=== PATIENT | female | born 1935 | race Caucasian/White ===

== ENCOUNTER 2017-08-28 04:27 | Observation (INO) ==
[2017-08-28] MEDS ORDERED: *HR* OxyCODONE Immed Rel 5 MG TABLET PO ONE (04:36)
--- NOTE | 2017-08-28 06:14 | Emergency Department Note ---
Disposition Clinical Impression: Muscle contusion, Inability to ambulate due to hip Disposition: Admitted As Inpatient Condition: Good General Adult HPI - General Chief complaint: ED Back Pain/Injury Stated complaint: back pain Time Seen by Provider: 08/28/17 04:34 Source: patient, EMS Limitations: no limitations Nursing Notes Reviewed: Yes Vital Signs Reviewed: Yes - History of Present Illness HPI Narrative: Patient presents for evaluation of left leg pain. Patient states that she fell approximately 10 days ago. She has pain when she initially tries to stand up. Patient states the symptoms improve as she walks. Pain is localized to the left hip area. Patient does not complain of any back pain. No numbness or tingling through the lower extremity. Pain occasionally radiates to the knee. Will perform CT scan to further evaluate for possible fracture. Pain is likely musculoskeletal as she has significant tender point within the gluteus and pain with passive stretching of the musculature. Pain Scale: 8 - Related Data Previous Rx's Medication Instructions Recorded Azithromycin [Azithromycin 6-Tab 250 mg PO PER PKG DI #6 tab 02/14/17 Pack] predniSONE [PredniSONE] 10 mg PO DAILY #20 tablet 02/14/17 Lidocaine Patch [Lidoderm 5% patch] 1 each TP DAILY #7 adh..patch 08/18/17 Naproxen [Naprosyn] 250 mg PO BID #14 tablet 08/28/17 Allergies Allergy/AdvReac Type Severity Reaction Status Date / Time Penicillins Allergy Itching Verified 02/14/17 12:18 prednisone AdvReac Nausea Verified 02/14/17 12:18 All systems ED: reviewed and negative except as stated. Constitutional: Denies: fever, chills Cardiovascular: Denies: chest pain, palpitations Respiratory: Denies: cough Gastrointestinal: Denies: abdominal pain, nausea, vomiting Musculoskeletal: Reports: other (Left leg pain). Denies: back pain Integumentary: Denies: rash, abrasion, lesions Neurological: Denies: headache Past Medical History - Past Medical History Medical history: Reports: asthma Psychiatric history: Reports: no psych history - Social History Smoking Status: Never smoker Smokeless Tobacco Status: No Alcohol use: Reports: none Drug use: Reports: none Physical Exam General appearance: NAD, conversant Eyes: anicteric sclerae, moist conjunctivae; PERRL HENT: Atraumatic; oropharynx clear with moist mucous membranes Neck: Normal appearance; Trachea midline Chest: Symmetrical chest rise; No respiratory distress Extremities: No peripheral edema or extremity tenderness Musculoskeletal: Tenderness to palpation most significant within the middle aspect of the gluteus muscle. Patient has pain with straight leg raise and stretching of the hamstring. Patient has gotten up to go to the bathroom and walks without difficulty. Neurovascularly intact to the lower extremity. No tenderness to palpation along the lumbar spine or sacroiliac crests. Mild tenderness to the left hip. Skin: Normal temperature, turgor and texture; no rash, ulcers or subcutaneous nodules Psych: Appropriate mood and affect Neuro: Awake and alert - General Limitations: no limitations General appearance: alert, in no apparent distress Course - Reevaluation(s) Reevaluation #1: CT negative. Patient was attempted to a related bedside and has significant difficulty getting up as well as getting down. Patient is unable to go home secondary to her not have any assistance at home. He has zero mobility without assistance. - Consultations Consultation #1: Discussed with Dr. Rodriguez. Pt accepted for admission. Vital Signs Temperature 99.3 F 08/28/17 04:29 Pulse Rate 70 08/28/17 04:29 Respiratory Rate 16 08/28/17 04:29 Blood Pressure 189/99 08/28/17 04:29 O2 Sat by Pulse Oximetry 99 08/28/17 04:29 Temperature 97.5 F L 08/28/17 07:31 Pulse Rate 64 08/28/17 07:31 Respiratory Rate 16 08/28/17 07:31 Blood Pressure 168/83 08/28/17 07:31 O2 Sat by Pulse Oximetry 97 08/28/17 07:31 Oxygen Delivery Oxygen Delivery Room Air Medical Decision Making - Lab Data Result diagrams: 08/28/17 06:48 08/28/17 06:48 Lab Results 08/28/17 08/28/17 08/28/17 Range/Units 06:48 06:48 06:48 WBC 7.0 (4.3-11.1) K/mcL RBC 5.03 H (3.82-4.97) M/mcL Hgb 14.5 (11.5-15.4) g/dL Hct 44.4 (35.3-44.9) % MCV 88.3 (83.0-100.0) fL MCH 28.8 (28.0-33.3) pg MCHC 32.7 (31.6-35.5) g/dL RDW 13.2 (11.5-14.5) % Plt Count 286 (140-400) K/mcL MPV 9.7 (9.4-12.4) fL Immature Gran % 0.4 (0-4) % Seg Neutrophils % 60.0 % Lymphocytes % 27.3 % Monocytes % 9.0 % Eosinophils % 2.6 % Basophils % 0.7 % Neutrophils # 4.2 (1.6-8.9) K/mcL Lymphocytes # 1.9 (0.6-4.6) K/mcL Monocytes # 0.6 (0.0-1.3) K/mcL Eosinophils # 0.2 (0.0-0.6) K/mcL Basophils # 0.1 (0.0-0.2) K/mcL PT 11.9 (9.4-12.1) Seconds INR 1.1 Sodium 139 (136-145) mEq/L Potassium 3.7 (3.5-4.5) mEq/L Chloride 105 (98-109) mEq/L Carbon Dioxide 26 (19-29) mEq/L BUN 19 (7-20) mg/dL Creatinine 0.77 (0.57-1.11) mg/dL Est GFR ( Amer) > 60 (> 60) Est GFR (Non-Af Amer) > 60 (> 60) BUN/Creatinine Ratio 25 (6-26) Glucose 102 H (70-99) mg/dL Calculated Osmolality 290 (280-300) Calcium 9.4 (8.6-10.8) mg/dL Total Bilirubin 0.6 (0.2-1.2) mg/dL AST 21 (5-34) Units/L ALT 20 (0-55) Units/L Alkaline Phosphatase 81 (38-126) Units/L Serum Total Protein 8.3 (6.0-8.3) g/dL Albumin 3.9 (3.5-5.0) g/dL Globulin 4.4 H (2.4-3.5) g/dL Albumin/Globulin Ratio 0.9 L (1.1-2.2) Attestation Statement - Attestation Attestation: IVikash MD, personally evaluated this patient and discussed their management with the resident physician. I reviewed the resident's note and agree with the documented findings, medical decision making, and plan of care. 82-year-old female presents to the emergency department with a complaint of left lower back pain going down the left leg. Patient had a fall approximately 10 days ago. She was seen here at that time and had some x-rays which were negative. She complains of continued pain which has gotten worse over the past few days. Pain is in the left lower lumbar and left sacroiliac region and radiates down through the left buttock and down the left leg. No numbness tingling or weakness in the leg. No urinary incontinence or urinary retention. No difficulty with bowel movements. Abdominal pain. No fever. Patient complains of difficulty ambulating and getting around due to the pain. On examination patient is a well-developed well-nourished elderly female in no acute distress. She is alert and oriented 3. There is no cyanosis or diaphoresis. Breath sounds are clear and equal bilaterally. Heart regular rate and rhythm. Abdomen soft and nontender with normal bowel sounds. There is tenderness over the left SI joint region and patient has a positive straight leg raise on the left. CT of the pelvis was obtained and showed no definite fracture. We attempted to road test patient but she was unable to ambulate with the use of a walker. The hospitalist, Dr. Rodriguez, was consulted and accepted admission of the patient.
[2017-08-28 06:57] LABS: Basophils # 0.1 K/mcL (0.0-0.2); Basophils % 0.7 %; Eosinophils # 0.2 K/mcL (0.0-0.6); Eosinophils % 2.6 %; Hematocrit 44.4 % (35.3-44.9); Hemoglobin 14.5 g/dL (11.5-15.4); Immature Granulocytes % 0.4 % (0-4); Lymphocytes # 1.9 K/mcL (0.6-4.6); Lymphocytes % 27.3 %; Mean Corpuscular HGB Conc 32.7 g/dL (31.6-35.5); Mean Corpuscular Hemoglobin 28.8 pg (28.0-33.3); Mean Corpuscular Volume 88.3 fL (83.0-100.0); Mean Platelet Volume 9.7 fL (9.4-12.4); Monocytes # 0.6 K/mcL (0.0-1.3); Neutrophils # 4.2 K/mcL (1.6-8.9); Platelet Count 286 K/mcL (140-400); Red Blood Count 5.03 M/mcL (3.82-4.97); Red Cell Distribution Width 13.2 % (11.5-14.5)
[2017-08-28 07:03] LABS: INR 1.1; Prothrombin Time 11.9 Seconds (9.4-12.1)
[2017-08-28 07:05] LABS: Alanine Aminotransferase 20 Units/L (0-55); Albumin 3.9 g/dL (3.5-5.0); Albumin/Globulin Ratio 0.9 (1.1-2.2); Alkaline Phosphatase 81 Units/L (38-126); Aspartate Amino Transferase 21 Units/L (5-34); BUN/Creatinine Ratio 25 (6-26); Bilirubin,Total 0.6 mg/dL (0.2-1.2); Blood Urea Nitrogen 19 mg/dL (7-20); Calcium 9.4 mg/dL (8.6-10.8); Carbon Dioxide 26 mEq/L (19-29); Chloride 105 mEq/L (98-109); Globulin 4.4 g/dL (2.4-3.5); Glucose 102 mg/dL (70-99); Osmolality,Calculated 290 (280-300); Potassium 3.7 mEq/L (3.5-4.5); Sodium 139 mEq/L (136-145); Total Protein 8.3 g/dL (6.0-8.3); eGFR For African Americans > 60 (> 60); eGFR For Non-African Americans > 60 (> 60)
[2017-08-28 08:08] LABS: Bilirubin,Urine Negative (Negative); Blood,Urine Negative (Negative); Clarity,Urine Cloudy (Clear); Color,Urine Yellow (Yellow); Glucose,Urine (UA) Normal (Normal); Ketones,Urine Negative (Negative); Leukocyte Esterase,Urine Moderate (Negative); Nitrite,Urine Positive (Negative); PH,Urine 7.5 pH Units (5.0-8.0); Protein,Urine Negative (Neg-Trace); Specific Gravity,Urine 1.014 (1.010-1.025); Urobilinogen,Urine Normal (Normal)
[2017-08-28 08:10] LABS: Bacteria,Urine Many per hpf (None-Few); Hyaline Casts,Urine None Seen per lpf (None-Few); RBC,Urine 0-3 per hpf (0-3); Squamous Epithelial Cell,Urine None Seen per lpf (None-Few); WBC,Urine 50-100 per hpf (0-3)
--- NOTE | 2017-08-28 09:39 | Internal Med History&Physical ---
Date of Encounter: 08/28/17 Time of Encounter: 08:00 Assessment and Plan (1) Inability to ambulate due to hip Current visit: Yes Status: Acute -Patient reports a 2 week history of difficulty with ambulation status post fall and pain from left hip down to her left foot. -Patient with positive straight leg test with pain radiating down from her left gluteus down to her foot. -In the ER, CT of the pelvis showed severe lumbar spondylosis with no definite fracture but recommendations for MRI for evaluation for lumbar vertebral fractures. -Will order MRI of pelvis to rule out fracture of hip and MRI of lumbar to rule out fracture of lumbar spine. -Will also consult physical therapy for evaluation of home safety. (2) Asthma Current visit: Yes Status: Acute -Stable; continue home medications. Qualifiers: Asthma complication type: unspecified Qualified Code(s): J45.909 - Unspecified asthma, uncomplicated (3) Glaucoma Current visit: Yes Status: Acute -Continue home medications. Qualifiers: Glaucoma stage: stage unspecified Qualified Code(s): H40.10X0 - Unspecified open-angle glaucoma, stage unspecified (4) Pyuria Current visit: Yes Status: Acute -Patient with positive nitrites, leukoesterase and white blood cells on urinalysis. -Patient is asymptomatic however therefore will not initiate treatment until results of cultures are known which are pending. (5) DVT prophylaxis Current visit: Yes Status: Acute -Subcutaneous heparin Internal Medicine - H&P: HPI Chief complaint: Left gluteal/leg pain Admitted From: Home Plans for Post Hospital Care: Transfer Nursing Home Facility History of present illness: Patient is an 82-year-old female with past medical history significant for glaucoma and asthma who presents to the ER on 08/28/17 due to left gluteal and left leg pain. Patient reports of falling on her left side approximately 2 weeks ago and presented then to [facility] ER and was discharged with Lidoderm patch. Patient however reports no improvement in her left leg pain. Patient describes her pain as sharp with a severity of 10 out of 10 and states that it starts at her left gluteus and radiates down the lateral aspect of her leg down to her foot. Patient reports the pain is provoked on standing and lasts for minutes and then resolves. Patient denies any numbness or tingling in leg. She now reports of having difficulty ambulating which has affected her independence at home so she decided to come into the ER for another evaluation. In the ER, CT of the pelvis showed severe lumbar spondylosis with no definite fracture but recommendations for MRI for evaluation for lumbar vertebral fractures. She was also found to have pyuria on urinalysis but is asymptomatic ; cultures pending. Patient will be admitted to the medical surgical floor for left gluteal/leg pain. Past Med Surg Social Fam HX - Past Medical History Medical history: asthma Psychiatric history: no psych history - Social History Smoking Status: Never smoker Smokeless Tobacco Status: No Alcohol use: none Drug use: none Internal Medicine - H&P: Meds Lidocaine Patch [Lidoderm 5% patch] 1 each TP DAILY #7 adh..patch 08/18/17 [Rx] Latanoprost [Xalatan] 1 drop OP HS 08/28/17 [History] Naproxen [Naprosyn] 250 mg PO BID #14 tablet 08/28/17 [Rx] 3 Allergy/AdvReac Type Severity Reaction Status Date / Time Penicillins Allergy Itching Verified 02/14/17 12:18 prednisone AdvReac Nausea Verified 02/14/17 12:18 All Systems PM: A 10-system review of systems was performed and is negative for pertinent findings except as documented above in the HPI. - Constitutional Vitals: Temp Pulse Resp BP Pulse Ox 97.5 F L 64 16 168/83 97 08/28/17 07:31 08/28/17 07:31 08/28/17 07:31 08/28/17 07:31 08/28/17 07:31 General appearance: Present: A&O X 3, no acute distress - Head Head exam: Present: atraumatic - Eye Eye exam: Present: normal appearance - ENT ENT exam: Present: mucous membranes moist - Respiratory Respiratory exam: Present: CTAB. Absent: accessory muscle use, rales, rhonchi, wheezes - Cardiovascular Cardiovascular exam: Present: RRR, +S1, +S2. Absent: diastolic murmur, gallop, rubs, systolic murmur - GI/Abdominal GI/Abdominal exam: Present: normal bowel sounds, soft, no peritoneal signs. Absent: distended, tenderness - Back Exam Back exam: Absent: vertebral tenderness (Radiating shooting pain with left leg raise) - Neurological Exam Neurological exam: Present: oriented X3, no focal deficits - Psychiatric Psychiatric exam: Present: normal mood - Skin Skin exam: Present: normal color Internal Med - H&P Results - Labs CBC & Chem 7: 08/28/17 06:48 08/28/17 06:48 Labs: Urine 08/28/17 Range/Units 07:57 Urine Color Yellow (Yellow) Urine Clarity Cloudy A (Clear) Urine pH 7.5 (5.0-8.0) pH Units Ur Specific [place] 1.014 (1.010-1.025) Urine Protein Negative (Neg-Trace) mg/dL Urine Glucose (UA) Normal (Normal) mg/dL
[2017-08-28] MEDS ORDERED: Ketorolac 30 MG/ML VIAL IVP PRN (10:11)
[2017-08-28] MEDS ORDERED: Naloxone 0.4 MG/ML INJ IVP PRN (10:11)
[2017-08-28] MEDS: *HR* Heparin 5,000 UNIT/ML VIAL SQ SCH ×2 (16:59→21:00)
[2017-08-28] MEDS ORDERED: Acetaminophen 325 MG TABLET PO PRN (20:36)
[2017-08-28] MEDS: Latanoprost 2.5 ML BOTTLE BOTH EYES SCH (21:00)
[2017-08-29] MEDS: *HR* Heparin 5,000 UNIT/ML VIAL SQ SCH ×3 (05:27→21:03)
[2017-08-29 06:05] LABS: Basophils % 0.4 %; Eosinophils # 0.2 K/mcL (0.0-0.6); Hematocrit 43.7 % (35.3-44.9); Hemoglobin 14.4 g/dL (11.5-15.4); Immature Granulocytes % 0.3 % (0-4); Lymphocytes # 2.1 K/mcL (0.6-4.6); Lymphocytes % 22.7 %; Mean Corpuscular Hemoglobin 28.8 pg (28.0-33.3); Mean Corpuscular Volume 87.4 fL (83.0-100.0); Mean Platelet Volume 9.9 fL (9.4-12.4); Monocytes # 0.8 K/mcL (0.0-1.3); Monocytes % 8.6 %; Platelet Count 292 K/mcL (140-400); Red Cell Distribution Width 13.2 % (11.5-14.5)
[2017-08-29 06:15] LABS: BUN/Creatinine Ratio 26 (6-26); Blood Urea Nitrogen 23 mg/dL (7-20); Calcium 9.4 mg/dL (8.6-10.8); Carbon Dioxide 24 mEq/L (19-29); Chloride 104 mEq/L (98-109); Glucose 103 mg/dL (70-99); Osmolality,Calculated 292 (280-300); Potassium 3.8 mEq/L (3.5-4.5); Sodium 139 mEq/L (136-145); eGFR For African Americans > 60 (> 60); eGFR For Non-African Americans > 60 (> 60)
--- NOTE | 2017-08-29 15:13 | Electrocardiograph Report ---
[address] [address] Test Date: 2017-08-28 Pat Name: Alexa Christian Department: [id number] Room: 3B24 Gender: F Firm Administrator: EKP : [id number] Requested By: Von Reese Order Number: [id number] Reading MD: Toni Munguia Measurements Intervals [place] Rate: 60 P: 56 NH: 176 QRS: -22 QRSD: 106 T: 83 QT: 448 QTc: 450 Interpretive Statements SINUS RHYTHM WITH MARKED SINUS ARRHYTHMIA BORDERLINE LEFT AXIS DEVIATION VOLTAGE CRITERIA FOR LVH NONSPECIFIC T-WAVE ABNORMALITY Electronically Signed On 08-29-2017 15:12:08 EST by Toni Munguia
[2017-08-29] MEDS: Latanoprost 2.5 ML BOTTLE BOTH EYES SCH (20:26)
--- NOTE | 2017-08-30 01:56 | Internal Med Progress Note ---
Date of Encounter: 08/29/17 Time of Encounter: 12:35 - Assessment and plan (1) Inability to ambulate due to hip Current Visit: Yes Status: Acute Assessment and plan: Follow-up MRI read, PT/OT evaluation. (2) Muscle contusion Current Visit: Yes Status: Acute (3) Asthma Current Visit: Yes Status: Acute Qualifiers: Asthma complication type: unspecified Qualified Code(s): J45.909 - Unspecified asthma, uncomplicated (4) DVT prophylaxis Current Visit: Yes Status: Acute - Subjective Interval history: No acute events. Had MRI done results pending. Pain is minimal when she is laying on her back. She is able to sit up on her own and has no complaints. - Constitutional Vitals: Temp Pulse Resp BP Pulse Ox 98.0 F 73 16 179/97 95 08/29/17 23:15 08/29/17 23:15 08/29/17 23:15 08/29/17 23:15 08/29/17 23:15 General appearance: Present: A&O X 3, no acute distress Exam: - Head Head exam: Present: atraumatic - Eye Eye exam: Present: normal appearance - ENT ENT exam: Present: mucous membranes moist - Respiratory Respiratory exam: Present: CTAB. Absent: accessory muscle use, rales, rhonchi, wheezes - Cardiovascular Cardiovascular exam: Present: RRR, +S1, +S2. Absent: diastolic murmur, gallop, rubs, systolic murmur - GI/Abdominal GI/Abdominal exam: Present: normal bowel sounds, soft, no peritoneal signs. Absent: distended, tenderness - Back Exam Back exam: Absent: vertebral tenderness (Radiating shooting pain with left leg raise) - Neurological Exam Neurological exam: Present: oriented X3, no focal deficits - Psychiatric Psychiatric exam: Present: normal mood - Skin Skin exam: Present: normal color Internal Medicine: Result - Labs CBC & Chem 7: 08/29/17 05:33 08/29/17 05:33 Labs: Short CBC 08/29/17 Range/Units 05:33 WBC 9.1 (4.3-11.1) K/mcL Hgb 14.4 (11.5-15.4) g/dL Hct 43.7 (35.3-44.9) % Plt Count 292 (140-400) K/mcL Neutrophils # 6.0 (1.6-8.9) K/mcL BMP 08/29/17 05:33 Sodium 139 Potassium 3.8 Chloride 104 Carbon Dioxide 24 BUN 23 H Creatinine 0.89 Glucose 103 H Calcium 9.4 - ABG Interpretation ABG results: PT/INR, D-dimer PT 11.9 Seconds (9.4-12.1) 08/28/17 06:48 - Impressions Impressions Hip MRI 08/29/17 08:55 IMPRESSION: No evidence for occult fracture. Mild degenerative changes to the left hip along with degeneration/tearing of the superolateral and anterosuperior labrum. High-grade partial-thickness tearing along with tendinosis involving the left gluteus medius tendon at greater trochanteric attachment. Suspected full-thickness component to the tear as well. There is also tendinosis and high-grade partial tearing of the left hamstring tendons at ischial tuberosity attachment. Mild left greater trochanteric bursitis. On large [id number] coronal sequences there is also evidence for high-grade partial tearing and tendinosis to the right common hamstring tendons at right ischial tuberosity attachment as well as for minimal right greater trochanteric bursitis. D/ / 08/29/2017 12:12:57 Brandon Samuel MD / mara Interpreting Provider: Brandon Samuel MD Lumbar Spine MRI 08/29/17 08:55 IMPRESSION: Levoscoliosis. Grade 1 spondylolisthesis of L4 on L5. Retrolisthesis of T12 on L1, L1 on L2, and L2 on L3. Multilevel degenerative changes with disc and osteophytes resulting in narrowing of the neural foramina throughout the lumbar region. There is stenosis of the thecal sac at L4-L5 as discussed above. D/ / 08/29/2017 12:07:11 Veronica Simeon MD / mara Interpreting Provider: Veronica Simeon MD Consult Discharge Plan - Plan Referrals: Esthela Simeon MD [Primary Care Provider] - 09/05/17 2:50 pm
[2017-08-30] MEDS: *HR* Heparin 5,000 UNIT/ML VIAL SQ SCH ×3 (06:02→21:20)
[2017-08-30] MEDS ORDERED: Levofloxacin 500 MG/100 ML 500 MG/100 ML BAG IVPB SCH (09:00)
--- NOTE | 2017-08-30 14:29 | Internal Med Progress Note ---
Date of Encounter: 08/30/17 Time of Encounter: 14:25 - Assessment and plan (1) Tendonosis Current Visit: Yes Status: Acute Assessment and plan: presented with 2 week history of difficulty ambulating status post fall and pain from left hip down to her left foot. Hip MRI with high-grade partial- thickness tearing along with tendinosis involving the left gluteus medius tendon , high-grade partial tearing and tendinosis to the right common hamstring tendons. Lumbar MRI with narrowing of the neural foramina throughout the lumbar region. Sx's improved with conservative treatment. Ortho consulted (2) UTI due to Klebsiella species Current Visit: Yes Status: Acute Assessment and plan: Urine cx with klebsiella, saxena sensitive. Cont Levaquin (3) Hypertension Current Visit: Yes Status: Acute Assessment and plan: BP elevated, not on BP medications at home. Start low dose amlodipine Qualifiers: Hypertension type: essential hypertension Qualified Code(s): I10 - Essential (primary) hypertension (4) DVT prophylaxis Current Visit: Yes Status: Acute Assessment and plan: heparin - Subjective Interval history: Seen and examined at bedside; patient is new to me. Information obtained from chart review and patient report. Patient says she feels much better, she actually denies bacl or leg pain. Says she is able to get around as long as she careful and moves slowly. No numbness or tingling, no CP, no SOB - Constitutional Vitals: Temp Pulse Resp BP Pulse Ox 98.0 F 65 18 146/78 97 08/30/17 11:02 08/30/17 11:02 08/30/17 11:02 08/30/17 11:02 08/30/17 11:02 General appearance: Present: A&O X 3, no acute distress - Head Head exam: Present: atraumatic, normocephalic - Eye Eye exam: Present: PERRL, conjuntiva pink, sclera anicteric Pupils: Present: PERRL - Neck Neck exam general surgery: Present: supple, trachea midline. Absent: lymphadenopathy - Respiratory Respiratory exam: Present: CTAB. Absent: accessory muscle use, rales, rhonchi, wheezes - Cardiovascular Cardiovascular exam: Present: RRR, +S1, +S2. Absent: diastolic murmur, gallop, rubs, systolic murmur - GI/Abdominal GI/Abdominal exam: Present: normal bowel sounds, soft, no peritoneal signs. Absent: distended, tenderness - Extremities Exam Extremities exam: Present: warm, radial pulses palpable and symmetrical. Absent : calf tenderness, cyanotic, pedal edema - Neurological Exam Neurological exam: Present: CN II-XII intact, oriented X3, no focal deficits. Absent: pronater drift, facial droop, speech deficit - Skin Skin exam: Present: dry, intact Internal Medicine: Result - Labs CBC & Chem 7: 08/29/17 05:33 08/29/17 05:33 - ABG Interpretation ABG results: PT/INR, D-dimer PT 11.9 Seconds (9.4-12.1) 08/28/17 06:48 - Impressions Impressions Lumbar Spine MRI 08/29/17 08:55 IMPRESSION: Levoscoliosis. Grade 1 spondylolisthesis of L4 on L5. Retrolisthesis of T12 on L1, L1 on L2, and L2 on L3. Multilevel degenerative changes with disc and osteophytes resulting in narrowing of the neural foramina throughout the lumbar region. There is stenosis of the thecal sac at L4-L5 as discussed above. D/ / 08/29/2017 12:07:11 Veronica Simeon MD / mara Interpreting Provider: Veronica Simeon MD Consult Discharge Plan - Plan Referrals: Esthela Simeon MD [Primary Care Provider] - 09/05/17 2:50 pm
[2017-08-30] MEDS ORDERED: amLODIPine 5 MG TABLET PO SCH (14:45)
--- NOTE | 2017-08-30 18:55 | Orthopedic Consult Note ---
Date of Encounter: 08/30/17 Time of Encounter: 18:41 History of Present Illness Chief complaint: Improving buttock, back and leg pain HPI: Ms. Christian is a 82 year old female who sustained a fall approximately 2 weeks ago while outside of her home onto some concrete. She states that she scraped her knee at the time. She states that she really was not feeling too bad initially but after a few days time she started developing progressive pain in and about the buttock and legs. This is predominantly on the left side. Patient got to the point where her pain was progressive. She was seen initially on August 17 and had x-rays of her elbow knee and pelvis. No fractures were identified. The patient was then seen on [address] of the pelvis, MRI the left hip and MRI of the lumbar spine were performed with positive findings noted. Patient states that she is feeling quite well now. She is not having any pain routinely. She is able to ambulate. Most of the pain is is in transitioning from a sit to stand or a supine to standing position. She was having buttock and posterior leg pain. Denies neurovascular complaints. I reviewed the history and physical exam as well as pertinent history with the patient. Please see completed portion of the medical record for that information. Examination at this time reveals a scab over the anterolateral aspect of the left knee. The knee exam is relatively benign. There is no evidence of bilateral sciatic tension nor popliteal compression signs. Patient does have some mild tenderness over the left greater trochanter. There is no evidence of hip pain with range of motion. Distal neurosensory exam is grossly intact. Reviewed multiple studies. From 08/17/2017 I reviewed her left elbow x-ray is unremarkable. Left knee x-rays reviewed and this does show medial osteoarthritic changes with some lateral chondrocalcinosis. pelvis x-ray revealed some mild bilateral hip arthritic changes, there is the presence of vascular calcifications on the left side as well as rather arthritic changes at the left sacroiliac joint and fairly advanced lumbosacral degenerative disc and degenerative joint disease. I reviewed a CT of the pelvis from 08/28/2017, this revealed changes along both greater trochanters, some left acetabular cysts, left sacral iliac joint arthritic changes and fairly advanced lumbosacral degenerative joint and degenerative disc disease with a grade 4 L4-5 spondylolisthesis. An MRI of the left hip performed at same day reveals quite significant findings. There is no evidence of an acute fracture. The left hip shows some mild arthritic changes without evidence of an effusion. The labrum shows degenerative tearing. There is evidence of bilateral trochanteric bursitis left more involved than the right. The left gluteus medius muscle was markedly atrophic with what is probably a full- thickness tendon tear or avulsion off the trochanter. There is also atrophic muscle change in both the tensor fascia arabella and the gluteus minimus muscle. Incidental findings of partial tearing or tendinitis of the right hamstring at the ischial tuberosity is also noted. An MRI of the lumbosacral spine was performed on 08/29/2017. This is reviewed. This does show multilevel degenerative joint and degenerative disc disease. There is what is probably a degenerative grade 1 spondylolisthesis of L4 on 5 with the secondary stenosis. Impression: #1. Left greater than right trochanteric bursitis #2. Fatty atrophy left gluteus medias, gluteus minimus and tensor fascia arabella. #3. A Solis lesion or tear of the left gluteus medius tendon off the greater trochanter #4. Degenerative tear left acetabular labrum and #5. Partial high- grade tear of the right hamstring off the ischial tuberosity Recommendation: Suspicion is that these are all chronic ongoing processes. Patient is currently improved and is able to ambulate with little complaints. I discussed with the patient that I would recommend that we treat these very conservatively. I will allow her to progressively ambulate and use either acetaminophen or possibly an anti-inflammatory medication for pain. If she has more significant pain especially of the left greater trochanter consistent with a bursitis or the gluteus tendon avulsion, could consider local steroid injection. She understands the diagnosis and treatment options and feels that she is making steady improvement and would like to continue with a conservative treatment approach. I gave her my contact information should she have a problem with the hip or trochanter. She will call me if she has any additional care. Thank you very much for allowing me to see and care for Mrs Christian. Sincerely, Osbaldo Paz,DO Past Med Surg Social Fam HX - Past Medical History Medical history: asthma Psychiatric history: no psych history - Social History Smoking Status: Never smoker Smokeless Tobacco Status: No Alcohol use: none Drug use: none Medications and Allergies Cetirizine HCl [Zyrtec] 10 mg PO DAILY 08/28/17 [History] Latanoprost [Xalatan] 1 drop OP HS 08/28/17 [History] Lidocaine Patch [Lidoderm 5% patch] 1 patch TP AD 08/28/17 [History] Theophylline Anhydrous [Theodur] 300 mg PO BID 08/28/17 [History] 3 Allergy/AdvReac Type Severity Reaction Status Date / Time coal tar Allergy See Verified 08/28/17 11:57 Comments Penicillins Allergy Itching Verified 02/14/17 12:18 Tizanidine Allergy See Verified 08/28/17 11:57 Comments yellow dye Allergy See Verified 08/28/17 11:57 Comments prednisone AdvReac Nausea Verified 02/14/17 12:18 All Systems Reviewed: A 10-system review of systems was performed and is negative for pertinent findings except as documented above in the HPI. Physical Exam - Constitutional Vitals: Temp Pulse Resp BP Pulse Ox 98.1 F 66 16 163/84 95 08/30/17 15:40 08/30/17 15:40 08/30/17 15:40 08/30/17 15:40 08/30/17 15:40 Results - Labs Result Diagrams: 08/29/17 05:33 08/29/17 05:33 Labs: Abnormal lab results RBC 5.00 M/mcL (3.82-4.97) H 08/29/17 05:33 BUN 23 mg/dL (7-20) H 08/29/17 05:33 Glucose 103 mg/dL (70-99) H 08/29/17 05:33 Globulin 4.4 g/dL (2.4-3.5) H 08/28/17 06:48 Albumin/Globulin Ratio 0.9 (1.1-2.2) L 08/28/17 06:48 Urine Clarity Cloudy (Clear) A 08/28/17 07:57 Urine Nitrite Positive (Negative) A 08/28/17 07:57 Ur Leukocyte Esterase Moderate (Negative) H 08/28/17 07:57 Urine Microscopic WBC 50-100 per hpf (0-3) H 08/28/17 07:57 Urine Bacteria Many per hpf (None-Few) H 08/28/17 07:57 Ur Culture Indicated? YES (NO) A 08/28/17 07:57 All other labs normal. Consult Discharge Plan - Plan Referrals: Esthela Simeon MD [Primary Care Provider] - 09/05/17 2:50 pm
[2017-08-30] MEDS: Latanoprost 2.5 ML BOTTLE BOTH EYES SCH (21:19)
[2017-08-31] MEDS: *HR* Heparin 5,000 UNIT/ML VIAL SQ SCH (05:30)
[2017-08-31 06:55] VITALS: BP 161/73
--- NOTE | 2017-08-31 08:28 | Discharge Summary ---
Date of Encounter: 08/31/17 Time of Encounter: 08:22 - Discharge Diagnosis (1) Greater trochanteric bursitis of left hip Priority: Primary Status: Acute Comments: s/p fall approximately 2 weeks prior to presentaion. Presented with left hip pain and difficulty ambulating. Left hip MRI and lumbar spine MRI with multiple findings including left greater than right trochanteric bursitis, fatty atrophy left gluteus medias, gluteus minimus and tensor fascia arabella, garvey lesion or tear of the left gluteus medius tendon off the greater trochanter, degenerative tear left acetabular labrum and partial high-grade tear of the right hamstring off the ischial tuberosity. Evaluated by Dr. Paz ( Ortho) who felt these were chronic ongoing processes and recommended conservative management as symptoms were significantly improved and she is ambulating independently. Can consider outpatient steroid injection if pain returns/worsens. Patient ambulating independently and all sx's resolved at time of discharge. (2) UTI due to Klebsiella species Priority: Primary Status: Acute Comments: Urine cx with klebsiella, saxena sensitive. Has PCN allergy and does not want to take cephalosporins. Cont Levaquin for a total of 5 doses (3) Hypertension Priority: Primary Status: Acute Comments: on HCTZ and BB in the past but both stopped as BP was controlled per patient. BP uncontrolled while inpatient with SBPs 160s-180s. Amlodipine started with improvement in BP. Continue amlodipine at discharge. Recommend follow-up with PCP within one week for BP recheck. Qualifiers: Hypertension type: essential hypertension Qualified Code(s): I10 - Essential (primary) hypertension - Discharge Medications Prescriptions: amLODIPine [Norvasc] 10 mg PO DAILY #60 tablet levoFLOXacin [Levaquin] 250 mg PO DAILY #3 tablet Home Medications: Cetirizine HCl [Zyrtec] 10 mg PO DAILY 08/28/17 [History] Latanoprost [Xalatan] 1 drop OP HS 08/28/17 [History] Lidocaine Patch [Lidoderm 5% patch] 1 patch TP AD 08/28/17 [History] Theophylline Anhydrous [Theodur] 300 mg PO BID 08/28/17 [History] amLODIPine [Norvasc] 10 mg PO DAILY #60 tablet 08/31/17 [Rx] levoFLOXacin [Levaquin] 250 mg PO DAILY #3 tablet 08/31/17 [Rx] Allergies/Adverse Reactions: 3 Allergy/AdvReac Type Severity Reaction Status Date / Time coal tar Allergy See Verified 08/28/17 11:57 Comments Penicillins Allergy Itching Verified 02/14/17 12:18 Tizanidine Allergy See Verified 08/28/17 11:57 Comments yellow dye Allergy See Verified 08/28/17 11:57 Comments prednisone AdvReac Nausea Verified 02/14/17 12:18 Procedures/tests Complete & Pending: Procedures Performed prior 72 hours Category Date Time Status MR hip LT wo con [MR] Routine MRI 08/29/17 08:55 Completed MR lumbar spine wo con [MR] Routine MRI 08/29/17 08:55 Completed Date of admission: 08/28/17 07:04 Primary care physician: Esthela Simeon MD Consults: 08/28/17 10:12 Consult to Physical Therapy [CONS] Routine Comment: Evaluate, develop and implement POC Reason for Consult: Home safety/placement Consult to Quality Assurance Analyst [CONS] Routine Reason for SW Consult: Home safety/placement 08/29/17 07:27 Consult to Occupational Therapy [CONS] Routine Comment: Evaluate, develop and implement POC Reason for Consult: home safety/placement 08/30/17 09:17 Consult to Orthopedic Surgery [CONS] Routine Consulting Provider: Orthopedic and Sports Medicine Reason for Consult: High-grade gluteus medius tendon tear Call Completed: Yes Discharging clinician: Dori Church Anticipated date of discharge: 08/31/17 - Patient Status Disposition: Home, Self-Care Condition: Good Functional capacity at discharge: independent ambulation Overall status at discharge: patient is progressing back to baseline - Discharge Instructions Instructions: Hip Bursitis (GEN), Tendinitis (GEN), Hip Pain (GEN), Urinary Tract Infection in Women (DC), Levofloxacin (By mouth), Amlodipine (By mouth), Chronic Hypertension (DC) Follow Up With: Esthela Simeon MD [Primary Care Provider] - 09/05/17 2:50 pm Osbaldo Paz DO [Non-Partnered Physician] - Additional Instructions: Please call Dr. Paz at [phone] if his pain worsens or returns - Diet and Activity Activity: ambulate only with your walker, increase activity as tolerated, resume usual activities as tolerated Interval History: Seen and examined at bedside, patient says she fells well today and would like to discharge home. She denies any pain, no radiculopathy. No numbness or tingling appears to just lower extremities. She is ambulating independently without difficulty. She is aware of need to contact or so outpatient if symptoms return or pain worsens. She has no complaints at time of discharge. Hospital course: See assessment and plan for hospital course. - Time Spent with Patient Total time spent providing and/or coordinating discharge services: - Constitutional Vitals: Temp Pulse Resp BP Pulse Ox 97.8 F 76 16 161/73 96 08/31/17 06:53 08/31/17 06:53 08/31/17 06:53 08/31/17 06:53 08/31/17 06:53 General appearance: Present: A&O X 3, no acute distress - Head Head exam: Present: atraumatic, normocephalic - Eye Eye exam: Present: PERRL, conjuntiva pink, sclera anicteric Pupils: Present: PERRL - Neck Neck exam general surgery: Present: supple, trachea midline. Absent: lymphadenopathy - Respiratory Respiratory exam: Present: CTAB. Absent: accessory muscle use, rales, rhonchi, wheezes - Cardiovascular Cardiovascular exam: Present: RRR, +S1, +S2. Absent: diastolic murmur, gallop, rubs, systolic murmur - GI/Abdominal GI/Abdominal exam: Present: normal bowel sounds, soft, no peritoneal signs. Absent: distended, tenderness - Extremities Exam Extremities exam: Present: warm, radial pulses palpable and symmetrical. Absent : calf tenderness, cyanotic, pedal edema - Neurological Exam Neurological exam: Present: CN II-XII intact, oriented X3, no focal deficits. Absent: pronater drift, facial droop, speech deficit - Skin Skin exam: Present: dry, intact
== END 2017-08-31 09:58 | disposition home or self-care (01) ==
LOC: EMEROO 04:27 → 3BNU 04:27 → SUATTDRO 07:04 → 3BNU 07:17
PROVIDERS: ADMIT Family Medicine; ATTEND Student in an Organized Health Care Education/Training Program

== ENCOUNTER 2018-09-05 16:43 | Observation (INO) ==
[2018-09-05] MEDS ORDERED: 0.9 % Sodium Chloride 1,000 ML IVC ONE (17:06)
[2018-09-05] MEDS ORDERED: Aspirin 325 MG TABLET PO ONE (17:06)
--- NOTE | 2018-09-05 17:09 | Emergency Department Note ---
Disposition Clinical Impression: Atrial flutter Qualifiers: Atrial flutter type: atypical Qualified Code(s): I48.4 - Atypical atrial flutter Disposition: Admitted As Inpatient Referrals: Esthela Simeon MD [Primary Care Provider] - Forms: ED Satisfaction Letter Time of Disposition: 20:20 General Adult HPI - General Chief complaint: ED Arrhythmia/Palpitations Stated complaint: Holter monitor abnormal reading Time Seen by Provider: 09/05/18 16:55 - History of Present Illness Pain Scale: 0 - Related Data Home Medications Medication Instructions Recorded Confirmed Cetirizine HCl [Zyrtec] 10 mg PO DAILY 08/28/17 08/28/17 Latanoprost [Xalatan] 1 drop OP HS 08/28/17 08/28/17 Lidocaine Patch [Lidoderm 5% patch] 1 patch TP AD 08/28/17 08/28/17 Theophylline Anhydrous [Theodur] 300 mg PO BID 08/28/17 08/28/17 Previous Rx's Medication Instructions Recorded amLODIPine [Norvasc] 10 mg PO DAILY #60 tablet 08/31/17 levoFLOXacin [Levaquin] 250 mg PO DAILY #3 tablet 08/31/17 Allergies Allergy/AdvReac Type Severity Reaction Status Date / Time brimonidine Allergy See Verified 09/05/18 16:53 Comments coal tar Allergy See Verified 09/05/18 16:51 Comments Cortisone Allergy See Verified 09/05/18 16:53 Comments Dorzolamide Allergy See Verified 09/05/18 16:53 Comments Penicillins Allergy Itching Verified 09/05/18 16:51 Sulfa (Sulfonamide Allergy See Verified 09/05/18 16:53 Antibiotics) Comments Tizanidine Allergy See Verified 09/05/18 16:51 Comments yellow dye Allergy See Verified 09/05/18 16:51 Comments prednisone AdvReac Nausea Verified 09/05/18 16:51 Past Medical History - Past Medical History Medical history: Reports: asthma Psychiatric history: Reports: no psych history - Social History Smoking Status: Never smoker Smokeless Tobacco Status: No Alcohol use: Reports: none Drug use: Reports: none Course Vital Signs Temperature 98.3 F 09/05/18 16:49 Pulse Rate 142 09/05/18 16:49 Respiratory Rate 18 09/05/18 16:49 Blood Pressure 169/75 09/05/18 16:49 O2 Sat by Pulse Oximetry 96 09/05/18 16:49 Temperature 98.3 F 09/05/18 18:59 Pulse Rate 76 09/05/18 18:59 Respiratory Rate 21 09/05/18 18:59 Blood Pressure 159/70 09/05/18 18:59 O2 Sat by Pulse Oximetry 96 09/05/18 18:59 Oxygen Delivery Oxygen Delivery Room Air Medical Decision Making - Lab Data Result diagrams: 09/05/18 17:20 09/05/18 17:20 Lab Results 09/05/18 09/05/18 09/05/18 Range/Units 17:20 17:20 17:20 WBC 8.2 (4.3-11.1) K/mcL RBC 5.21 H (3.82-4.97) M/mcL Hgb 15.1 (11.5-15.4) g/dL Hct 45.1 H (35.3-44.9) % MCV 86.6 (83.0-100.0) fL MCH 29.0 (28.0-33.3) pg MCHC 33.5 (31.6-35.5) g/dL RDW 12.7 (11.5-14.5) % Plt Count 282 (140-400) K/mcL MPV 10.0 (9.4-12.4) fL Immature Gran % 0.1 (0-4) % Seg Neutrophils % 59.6 % Lymphocytes % 26.2 % Monocytes % 10.2 % Eosinophils % 3.4 % Basophils % 0.5 % Neutrophils # 4.9 (1.6-8.9) K/mcL Lymphocytes # 2.2 (0.6-4.6) K/mcL Monocytes # 0.8 (0.0-1.3) K/mcL Eosinophils # 0.3 (0.0-0.6) K/mcL Basophils # 0.0 (0.0-0.2) K/mcL PT 12.4 H (9.4-12.1) Seconds INR 1.1 APTT 31.6 (26.0-36.0) Seconds Sodium 139 (136-145) mEq/L Potassium 3.8 (3.5-5.1) mEq/L Chloride 104 (98-107) mEq/L Carbon Dioxide 24 (23-29) mEq/L BUN 20 (8-23) mg/dL Creatinine 0.90 (0.60-1.20) mg/dL Est GFR ( Amer) > 60 (> 60) Est GFR (Non-Af Amer) 60 (> 60) BUN/Creatinine Ratio 22 (6-26) Glucose 113 H (70-105) mg/dL Calculated Osmolality 291 (280-300) Calcium 9.8 (8.6-10.3) mg/dL Magnesium 2.1 (1.6-2.6) mg/dL Troponin I < 0.03 (< 0.04) ng/mL TSH 2.298 (0.340-5.600) mcIU/mL Urine Color (Yellow) Urine Clarity (Clear) Urine pH (5.0-8.0) pH Units Ur Specific Dugger (1.010-1.025) Urine Protein (Neg-Trace) mg/dL Urine Glucose (UA) (Normal) mg/dL Urine Ketones (Negative) mg/dL Urine Blood (Negative) Urine Nitrite (Negative) Urine Bilirubin (Negative) Urine Urobilinogen (Normal) mg/dL Ur Leukocyte Esterase (Negative) Urine Microscopic RBC (0-3) per hpf Urine Microscopic WBC (0-3) per hpf Ur Squamous Epith Cells (None-Few) per lpf Urine Bacteria (None-Few) per hpf Hyaline Casts (None-Few) per lpf Ur Culture Indicated? (NO) 09/05/18 Range/Units 18:01 WBC (4.3-11.1) K/mcL RBC (3.82-4.97) M/mcL Hgb (11.5-15.4) g/dL Hct (35.3-44.9) % MCV (83.0-100.0) fL MCH (28.0-33.3) pg MCHC (31.6-35.5) g/dL RDW (11.5-14.5) % Plt Count (140-400) K/mcL MPV (9.4-12.4) fL Immature Gran % (0-4) % Seg Neutrophils % % Lymphocytes % % Monocytes % % Eosinophils % % Basophils % % Neutrophils # (1.6-8.9) K/mcL Lymphocytes # (0.6-4.6) K/mcL Monocytes # (0.0-1.3) K/mcL Eosinophils # (0.0-0.6) K/mcL Basophils # (0.0-0.2) K/mcL PT (9.4-12.1) Seconds INR APTT (26.0-36.0) Seconds Sodium (136-145) mEq/L Potassium (3.5-5.1) mEq/L Chloride (98-107) mEq/L Carbon Dioxide (23-29) mEq/L BUN (8-23) mg/dL Creatinine (0.60-1.20) mg/dL Est GFR ( Amer) (> 60) Est GFR (Non-Af Amer) (> 60) BUN/Creatinine Ratio (6-26) Glucose (70-105) mg/dL Calculated Osmolality (280-300) Calcium (8.6-10.3) mg/dL Magnesium (1.6-2.6) mg/dL Troponin I (< 0.04) ng/mL TSH (0.340-5.600) mcIU/mL Urine Color Yellow (Yellow) Urine Clarity Cloudy A (Clear) Urine pH 7.0 (5.0-8.0) pH Units Ur Specific Dugger 1.005 L (1.010-1.025) Urine Protein Negative (Neg-Trace) mg/dL Urine Glucose (UA) Normal (Normal) mg/dL Urine Ketones Negative (Negative) mg/dL Urine Blood Trace H (Negative) Urine Nitrite Negative (Negative) Urine Bilirubin Negative (Negative) Urine Urobilinogen Normal (Normal) mg/dL Ur Leukocyte Esterase Large H (Negative) Urine Microscopic RBC 3-5 H (0-3) per hpf Urine Microscopic WBC TNTC H (0-3) per hpf Ur Squamous Epith Cells Many H (None-Few) per lpf Urine Bacteria Many H (None-Few) per hpf Hyaline Casts None Seen (None-Few) per lpf Ur Culture Indicated? NO. A (NO) Attestation Statement - Attestation Attestation: I examined this patient and my medical decision-making was [facility] I agree with the documented findings, disposition and treatment plan as described except to the extent set forth below. Patient to the ED with an abnormal Holter monitor reading. Patient was sent in because her Holter read A. fib. She has been having shortness of breath palpitations when she lays down. Recently had a normal echo. Studies were ordered by Dr. Washington. She is in no acute distress on examination. Heart tachycardia and regular. Plan. Cardiac workup. Rate control. Admission. Patient is rate controlled without medication. EKG appears to be in a flutter with a variable block. Admitted to medicine. Chest X-Ray 09/05/18 17:06 IMPRESSION: No acute cardiopulmonary process demonstrated D/ / Geronimo Mercado MD / Geronimo Mercado MD Interpreting Provider: Geronimo Mercado MD
--- NOTE | 2018-09-05 17:21 | Emergency Department Note ---
Disposition Clinical Impression: Atrial flutter Qualifiers: Atrial flutter type: atypical Qualified Code(s): I48.4 - Atypical atrial flutter Disposition: Admitted As Inpatient Referrals: Esthela Simeon MD [Primary Care Provider] - Forms: ED Satisfaction Letter Arrhythmia/Palpitations HPI - General Chief Complaint: ED Arrhythmia/Palpitations Stated Complaint: Holter monitor abnormal reading Time Seen by Provider: 09/05/18 16:55 Source: patient, family Mode of arrival: ambulatory Limitations: no limitations Nursing Notes Reviewed: Yes Vital Signs Reviewed: Yes - History of Present Illness HPI Narrative: Patient presents to the ED with the chief complaint of "they sent me over because of my Holter monitor". Patient had a Holter monitor placed recently and was called by her sandwich and drink cart operator and told to come to the ER. She states that she has been having palpitations that are worse at night and if she exerts herself. She states that they are particularly bad if she lays on her left side. She denies any associated shortness of breath. However, she does complain of orthopnea, but she states that is related to the palpitations. No previous history of A. fib or other arrhythmia. She states this has been ongoing for ab out the last year, but is just gotten worse over the last couple months. She denies any fever or chills. No chest pain other than the fluttering feeling. Denies any abdominal pain. No nausea, vomiting or diarrhea. She denies any rashes or pain or swelling in her legs - Related Data Home Medications Medication Instructions Recorded Confirmed Cetirizine HCl [Zyrtec] 10 mg PO DAILY 08/28/17 08/28/17 Latanoprost [Xalatan] 1 drop OP HS 08/28/17 08/28/17 Lidocaine Patch [Lidoderm 5% patch] 1 patch TP AD 08/28/17 08/28/17 Theophylline Anhydrous [Theodur] 300 mg PO BID 08/28/17 08/28/17 Previous Rx's Medication Instructions Recorded amLODIPine [Norvasc] 10 mg PO DAILY #60 tablet 08/31/17 levoFLOXacin [Levaquin] 250 mg PO DAILY #3 tablet 08/31/17 Allergies Allergy/AdvReac Type Severity Reaction Status Date / Time brimonidine Allergy See Verified 09/05/18 16:53 Comments coal tar Allergy See Verified 09/05/18 16:51 Comments Cortisone Allergy See Verified 09/05/18 16:53 Comments Dorzolamide Allergy See Verified 09/05/18 16:53 Comments Penicillins Allergy Itching Verified 09/05/18 16:51 Sulfa (Sulfonamide Allergy See Verified 09/05/18 16:53 Antibiotics) Comments Tizanidine Allergy See Verified 09/05/18 16:51 Comments yellow dye Allergy See Verified 09/05/18 16:51 Comments prednisone AdvReac Nausea Verified 09/05/18 16:51 Review of Systems: As reviewed in the HPI. All other systems reviewed are negative or normal. Past Medical History - Past Medical History Medical history: Reports: asthma Psychiatric history: Reports: no psych history - Social History Smoking Status: Never smoker Smokeless Tobacco Status: No Alcohol use: Reports: none Drug use: Reports: none Course Course Narrative: Patient having a very strange EKG. Consistent with a flutter with a 2-1 block, but on top of her right bundle. Consider giving Cardizem. At first, but she is wide complex and so we will hold off until lab work is back. Lab work is back. Unremarkable. Patient spontaneously converted to a normal rate. She is and supraventricular bigeminy. We will admit to the hospitalist service. Spoke with hospitalist, one of us talked cardiology. Spoke with cardiology and text but then the EKG. Agreed that this was a flutter with a 2-1 block with a right bundle. Did recommend anticoagulation which we will start Vital Signs Temperature 98.3 F 09/05/18 16:49 Pulse Rate 142 09/05/18 16:49 Respiratory Rate 18 09/05/18 16:49 Blood Pressure 169/75 09/05/18 16:49 O2 Sat by Pulse Oximetry 96 09/05/18 16:49 Temperature 98.3 F 09/05/18 18:59 Pulse Rate 76 09/05/18 18:59 Respiratory Rate 21 09/05/18 18:59 Blood Pressure 159/70 09/05/18 18:59 O2 Sat by Pulse Oximetry 96 09/05/18 18:59 Oxygen Delivery Oxygen Delivery Room Air Arrhythmia/Palpitations - Lab Data Lab results reviewed: Yes I reviewed the patient's lab results. Result diagrams: 09/05/18 17:20 09/05/18 17:20 Lab Results 09/05/18 09/05/18 09/05/18 Range/Units 17:20 17:20 17:20 WBC 8.2 (4.3-11.1) K/mcL RBC 5.21 H (3.82-4.97) M/mcL Hgb 15.1 (11.5-15.4) g/dL Hct 45.1 H (35.3-44.9) % MCV 86.6 (83.0-100.0) fL MCH 29.0 (28.0-33.3) pg MCHC 33.5 (31.6-35.5) g/dL RDW 12.7 (11.5-14.5) % Plt Count 282 (140-400) K/mcL MPV 10.0 (9.4-12.4) fL Immature Gran % 0.1 (0-4) % Seg Neutrophils % 59.6 % Lymphocytes % 26.2 % Monocytes % 10.2 % Eosinophils % 3.4 % Basophils % 0.5 % Neutrophils # 4.9 (1.6-8.9) K/mcL Lymphocytes # 2.2 (0.6-4.6) K/mcL Monocytes # 0.8 (0.0-1.3) K/mcL Eosinophils # 0.3 (0.0-0.6) K/mcL Basophils # 0.0 (0.0-0.2) K/mcL PT 12.4 H (9.4-12.1) Seconds INR 1.1 APTT 31.6 (26.0-36.0) Seconds Sodium 139 (136-145) mEq/L Potassium 3.8 (3.5-5.1) mEq/L Chloride 104 (98-107) mEq/L Carbon Dioxide 24 (23-29) mEq/L BUN 20 (8-23) mg/dL Creatinine 0.90 (0.60-1.20) mg/dL Est GFR ( Amer) > 60 (> 60) Est GFR (Non-Af Amer) 60 (> 60) BUN/Creatinine Ratio 22 (6-26) Glucose 113 H (70-105) mg/dL Calculated Osmolality 291 (280-300) Calcium 9.8 (8.6-10.3) mg/dL Magnesium 2.1 (1.6-2.6) mg/dL Troponin I < 0.03 (< 0.04) ng/mL TSH 2.298 (0.340-5.600) mcIU/mL Urine Color (Yellow) Urine Clarity (Clear) Urine pH (5.0-8.0) pH Units Ur Specific [place] (1.010-1.025) Urine Protein (Neg-Trace) mg/dL Urine Glucose (UA) (Normal) mg/dL Urine Ketones (Negative) mg/dL Urine Blood (Negative) Urine Nitrite (Negative) Urine Bilirubin (Negative) Urine Urobilinogen (Normal) mg/dL Ur Leukocyte Esterase (Negative) Urine Microscopic RBC (0-3) per hpf Urine Microscopic WBC (0-3) per hpf Ur Squamous Epith Cells (None-Few) per lpf Urine Bacteria (None-Few) per hpf Hyaline Casts (None-Few) per lpf Ur Culture Indicated? (NO) 09/05/18 Range/Units 18:01 WBC (4.3-11.1) K/mcL RBC (3.82-4.97) M/mcL Hgb (11.5-15.4) g/dL Hct (35.3-44.9) % MCV (83.0-100.0) fL MCH (28.0-33.3) pg MCHC (31.6-35.5) g/dL RDW (11.5-14.5) % Plt Count (140-400) K/mcL MPV (9.4-12.4) fL Immature Gran % (0-4) % Seg Neutrophils % % Lymphocytes % % Monocytes % % Eosinophils % % Basophils % % Neutrophils # (1.6-8.9) K/mcL Lymphocytes # (0.6-4.6) K/mcL Monocytes # (0.0-1.3) K/mcL Eosinophils # (0.0-0.6) K/mcL Basophils # (0.0-0.2) K/mcL PT (9.4-12.1) Seconds INR APTT (26.0-36.0) Seconds Sodium (136-145) mEq/L Potassium (3.5-5.1) mEq/L Chloride (98-107) mEq/L Carbon Dioxide (23-29) mEq/L BUN (8-23) mg/dL Creatinine (0.60-1.20) mg/dL Est GFR ( Amer) (> 60) Est GFR (Non-Af Amer) (> 60) BUN/Creatinine Ratio (6-26) Glucose (70-105) mg/dL Calculated Osmolality (280-300) Calcium (8.6-10.3) mg/dL Magnesium (1.6-2.6) mg/dL Troponin I (< 0.04) ng/mL TSH (0.340-5.600) mcIU/mL Urine Color Yellow (Yellow) Urine Clarity Cloudy A (Clear) Urine pH 7.0 (5.0-8.0) pH Units Ur Specific [place] 1.005 L (1.010-1.025) Urine Protein Negative (Neg-Trace) mg/dL Urine Glucose (UA) Normal (Normal) mg/dL Urine Ketones Negative (Negative) mg/dL Urine Blood Trace H (Negative) Urine Nitrite Negative (Negative) Urine Bilirubin Negative (Negative) Urine Urobilinogen Normal (Normal) mg/dL Ur Leukocyte Esterase Large H (Negative) Urine Microscopic RBC 3-5 H (0-3) per hpf Urine Microscopic WBC TNTC H (0-3) per hpf Ur Squamous Epith Cells Many H (None-Few) per lpf Urine Bacteria Many H (None-Few) per hpf Hyaline Casts None Seen (None-Few) per lpf Ur Culture Indicated? NO. A (NO) - Radiology Data Radiology results reviewed: Yes I reviewed the patient's radiology results. - EKG Data EKG attestation: Yes I reviewed and interpreted this EKG. EKG results narrative: Sinus rhythm, rate 75, supraventricular bigeminy, normal QTC, left axis deviation
[2018-09-05 17:38] LABS: Basophils % 0.5 %; Eosinophils # 0.3 K/mcL (0.0-0.6); Eosinophils % 3.4 %; Hematocrit 45.1 % (35.3-44.9); Hemoglobin 15.1 g/dL (11.5-15.4); Immature Granulocytes % 0.1 % (0-4); Lymphocytes # 2.2 K/mcL (0.6-4.6); Lymphocytes % 26.2 %; Mean Corpuscular HGB Conc 33.5 g/dL (31.6-35.5); Mean Corpuscular Volume 86.6 fL (83.0-100.0); Monocytes # 0.8 K/mcL (0.0-1.3); Monocytes % 10.2 %; Neutrophils # 4.9 K/mcL (1.6-8.9); Platelet Count 282 K/mcL (140-400); Red Blood Count 5.21 M/mcL (3.82-4.97); Red Cell Distribution Width 12.7 % (11.5-14.5); Segmented Neutrophils % 59.6 %
[2018-09-05 17:46] LABS: INR 1.1; Prothrombin Time 12.4 Seconds (9.4-12.1)
[2018-09-05 17:49] LABS: Activated Partial Thrombo Time 31.6 Seconds (26.0-36.0)
[2018-09-05 17:56] LABS: BUN/Creatinine Ratio 22 (6-26); Blood Urea Nitrogen 20 mg/dL (8-23); Calcium 9.8 mg/dL (8.6-10.3); Carbon Dioxide 24 mEq/L (23-29); Chloride 104 mEq/L (98-107); Glucose 113 mg/dL (70-105); Magnesium 2.1 mg/dL (1.6-2.6); Osmolality,Calculated 291 (280-300); Potassium 3.8 mEq/L (3.5-5.1); Sodium 139 mEq/L (136-145); Troponin I < 0.03 ng/mL (< 0.04); eGFR For Non-African Americans 60 (> 60)
[2018-09-05 18:10] LABS: Thyroid Stimulating Hormone 2.298 mcIU/mL (0.340-5.600)
[2018-09-05 18:41] LABS: Bilirubin,Urine Negative (Negative); Blood,Urine Trace (Negative); Clarity,Urine Cloudy (Clear); Color,Urine Yellow (Yellow); Glucose,Urine (UA) Normal (Normal); Ketones,Urine Negative (Negative); Leukocyte Esterase,Urine Large (Negative); Nitrite,Urine Negative (Negative); Protein,Urine Negative (Neg-Trace); Specific Gravity,Urine 1.005 (1.010-1.025); Urobilinogen,Urine Normal (Normal)
[2018-09-05 18:45] LABS: Bacteria,Urine Many per hpf (None-Few); Hyaline Casts,Urine None Seen per lpf (None-Few); Squamous Epithelial Cell,Urine Many per lpf (None-Few); WBC,Urine TNTC per hpf (0-3)
[2018-09-05] MEDS ORDERED: cefTRIAXone 1,000 MG in 0.9 % Sodium Chloride Mini Bag 100 ML IVPB ONE (19:35)
[2018-09-05] MEDS ORDERED: Heparin 25,000 UNIT/500 ML D5W 25,000 UNIT/500 ML BAG IVC SCH (20:00)
[2018-09-05] MEDS ORDERED: Naloxone 0.4 MG/ML INJ IVP PRN (20:44)
--- NOTE | 2018-09-05 21:05 | Internal Med History&Physical ---
Date of Encounter: 09/05/18 Time of Encounter: 21:04 Internal Medicine - H&P: HPI Chief complaint: Palpatations History of present illness: Ms. Christian is a 83 year old female with a past medical history of hypertension and asthma who was referred to the ED by her technician plant and maintenance. Patient recently had a Holter monitor placed due to a history of palpitations. She was contacted by her technician plant and maintenance earlier today and instructed to come into the ED due to abnormal findings. Initial EKG in the ED was consistent with a flutter with 2:1 block and right bundle branch block. Heart rate in the 140s. Patient spontaneously converted to normal rate but had persistent bigeminy. Cardiology was consulted, Dr. Nance, who agreed with findings of atrial flutter with 2:1 block with right bundle branch block and recommended starting patient on anticoagulation. Patient otherwise during my assessment was in no distress. She denied any chest pain or palpitations at the time. Further denies any recent illness. Past Med Surg Social Fam HX - Past Medical History Medical history: asthma Psychiatric history: no psych history - Past Surgical History Additional surgical history: Bladder mesh? - Social History Smoking Status: Never smoker Smokeless Tobacco Status: No Alcohol use: none Drug use: none Internal Medicine - H&P: Meds Cetirizine HCl [Zyrtec] 10 mg PO DAILY 08/28/17 [History] Latanoprost [Xalatan] 1 drop OP HS 08/28/17 [History] Lidocaine Patch [Lidoderm 5% patch] 1 patch TP AD 08/28/17 [History] Theophylline Anhydrous [Theodur] 300 mg PO BID 08/28/17 [History] amLODIPine [Norvasc] 10 mg PO DAILY #60 tablet 08/31/17 [Rx] levoFLOXacin [Levaquin] 250 mg PO DAILY #3 tablet 08/31/17 [Rx] Allergy/AdvReac Type Severity Reaction Status Date / Time brimonidine Allergy See Verified 09/05/18 16:53 Comments coal tar Allergy See Verified 09/05/18 16:51 Comments Cortisone Allergy See Verified 09/05/18 16:53 Comments Dorzolamide Allergy See Verified 09/05/18 16:53 Comments Penicillins Allergy Itching Verified 09/05/18 16:51 Sulfa (Sulfonamide Allergy See Verified 09/05/18 16:53 Antibiotics) Comments Tizanidine Allergy See Verified 09/05/18 16:51 Comments yellow dye Allergy See Verified 09/05/18 16:51 Comments prednisone AdvReac Nausea Verified 09/05/18 16:51 All Systems PM: A 10-system review of systems was performed and is negative for pertinent findings except as documented above in the HPI. - Constitutional Constitutional: no chills, no fever(s), no night sweats - EENT Eyes: no change in vision, no discharge, no pain, no photophobia Ears: no ear discharge, no ear pain, no tinnitus Nose, mouth and throat: no dysphagia, no nasal discharge, no neck pain, no sore throat - Cardiovascular Cardiovascular ROS IM: no chest pain, no diaphoresis, no dyspnea, no lightheadedness, no palpitations, no syncope - Respiratory Respiratory: no cough, no dyspnea, no wheezing, no excessive phlegm production - Gastrointestinal Gastrointestinal: no abdominal pain, no diarrhea, no hematemesis, no hematochez ia, no melena, no nausea, no vomiting - Genitourinary Genitourinary: no change in urinary stream, no dysuria, no flank pain, no hematuria - Musculoskeletal Musculoskeletal ROS IM: no numbness, no tingling - Integumentary Integumentary IM: no rash, no unusual bruising - Neurological Neurological ROS: no confusion, no convulsions, no focal weakness, no numbness, no tingling, no tremor(s) - Hematologic/Lymphatic Hematologic/Lymphatic: no easy bruising - Constitutional Vitals: Temp Pulse Resp BP Pulse Ox 98.3 F 76 21 159/70 96 09/05/18 18:59 09/05/18 18:59 09/05/18 18:59 09/05/18 18:59 09/05/18 18:59 Exam: General: Alert and oriented x3; lying in bed in no acute distress Skin:Normal color, no rash, no lesions. HEENT:EOM, pupils equal, round and reactive. Cardiovascular:Normal S1 & S2, no rubs, murmurs or gallops. No JVD. Pulse regular. Lungs:Normal breath sounds, no wheezes or crackles. Abdomen:Soft, non-tender, no rigidity. Extremities:No deformity, no edema or tenderness, no joint swelling or clubbing. Neurological:Normal cognition and motor skills. Pulses:Carotid and radial pulses normal +2. Rest of the physical exam is non contributory Internal Med - H&P Results - Labs CBC & Chem 7: 09/06/18 04:15 09/06/18 04:15 Labs: Short CBC 09/05/18 Range/Units 17:20 WBC 8.2 (4.3-11.1) K/mcL Hgb 15.1 (11.5-15.4) g/dL Hct 45.1 H (35.3-44.9) % Plt Count 282 (140-400) K/mcL Neutrophils # 4.9 (1.6-8.9) K/mcL BMP 09/05/18 17:20 Sodium 139 Potassium 3.8 Chloride 104 Carbon Dioxide 24 BUN 20 Creatinine 0.90 Glucose 113 H Calcium 9.8 Cardiac Enzymes 09/05/18 Range/Units 17:20 Troponin I < 0.03 (< 0.04) ng/mL Urine 09/05/18 Range/Units 18:01 Urine Color Yellow (Yellow) Urine Clarity Cloudy A (Clear) Urine pH 7.0 (5.0-8.0) pH Units Ur Specific [place] 1.005 L (1.010-1.025) Urine Protein Negative (Neg-Trace) mg/dL Urine Glucose (UA) Normal (Normal) mg/dL - Impressions ITS Impressions Chest X-Ray 09/05/18 17:06 IMPRESSION: No acute cardiopulmonary process demonstrated D/ / Geronimo Mercado MD / Geronimo Mercado MD Interpreting Provider: Geronimo Mercado MD - Assessment and plan (1) Atrial flutter Current Visit: Yes Status: Acute Assessment and plan: Patient presents with palpitations and referral from cardiology after Holter monitor findings of abnormal rhythm. Found to have EKG findings of atrial flutter with 2:1 conduction and right bundle branch block. Rate in the 140s. Converted to normal rate spontaneously. Now in sinus rhythm. Received loading dose of diltiazem and was placed on a drip briefly. Patient has a ChadsVasc of 4. Case was discussed with cardiology recommended starting patient on anticoagulation and will follow up in the morning. -Continue telemetry -Rate control as needed -Anticoagulation with heparin drip -Cardiology consult Qualifiers: Atrial flutter type: unspecified Qualified Code(s): I48.92 - Unspecified atrial flutter (2) Palpitations Current Visit: Yes Status: Acute Assessment and plan: Patient reports two-month history of intermittent palpitations which have gotten progressively worse over the past to 3 days. Found to have atrial flutter with 2 to one conduction. For management see above. (3) Asthma Current Visit: No Status: Acute Assessment and plan: No evidence of an acute exacerbation. -Home medications. Qualifiers: Asthma complication type: unspecified Qualified Code(s): J45.909 - Unspecified asthma, uncomplicated (4) Hypertension Current Visit: No Status: Acute Assessment and plan: Blood pressure mildly elevated. We will give Lopressor as needed. Qualifiers: Hypertension type: essential hypertension Qualified Code(s): I10 - Essential (primary) hypertension (5) Pyuria Current Visit: No Status: Acute Assessment and plan: Evidence of pyuria on urinalysis. Patient denies any dysuria or frequency. She received 1 dose of ceftriaxone in the ED. UA sent for culture. Likely asymptomatic bacteriuria. -Follow-up urine culture (6) DVT prophylaxis Current Visit: Yes Status: Acute Assessment and plan: Patient currently on heparin drip - Time Spent With Patient Total time spent is greater than 50% in coordination of care (as documented) at patient's floor/unit and/or counseling patient:
[2018-09-05 21:10] LABS: Heparin anti-factor XA UFH 0.01 IU/mL (0.30-0.70); INR 1.1; Prothrombin Time 12.9 Seconds (9.4-12.1)
[2018-09-06 04:53] LABS: Basophils # 0.1 K/mcL (0.0-0.2); Basophils % 0.7 %; Eosinophils # 0.4 K/mcL (0.0-0.6); Immature Granulocytes % 0.3 % (0-4); Lymphocytes % 26.5 %; Mean Corpuscular HGB Conc 32.8 g/dL (31.6-35.5); Mean Corpuscular Hemoglobin 28.8 pg (28.0-33.3); Mean Corpuscular Volume 87.8 fL (83.0-100.0); Mean Platelet Volume 10.1 fL (9.4-12.4); Monocytes # 0.9 K/mcL (0.0-1.3); Monocytes % 12.1 %; Neutrophils # 4.2 K/mcL (1.6-8.9); Platelet Count 247 K/mcL (140-400); Red Blood Count 4.44 M/mcL (3.82-4.97); Red Cell Distribution Width 12.9 % (11.5-14.5); Segmented Neutrophils % 55.4 %
[2018-09-06 05:02] LABS: Hemoglobin 12.8 g/dL (11.5-15.4)
[2018-09-06 05:14] LABS: Alanine Aminotransferase 13 Units/L (7-52); Albumin 3.9 g/dL (3.5-5.7); Albumin/Globulin Ratio 1.3 (1.1-2.2); Alkaline Phosphatase 68 Units/L (34-104); Aspartate Amino Transferase 19 Units/L (13-39); BUN/Creatinine Ratio 23 (6-26); Bilirubin,Total 0.5 mg/dL (0.3-1.0); Blood Urea Nitrogen 17 mg/dL (8-23); Calcium 9.2 mg/dL (8.6-10.3); Carbon Dioxide 24 mEq/L (23-29); Chloride 107 mEq/L (98-107); Globulin 2.9 g/dL (2.4-3.5); Glucose 103 mg/dL (70-105); Osmolality,Calculated 290 (280-300); Potassium 3.6 mEq/L (3.5-5.1); Sodium 139 mEq/L (136-145); Total Protein 6.8 g/dL (6.4-8.9); eGFR For Non-African Americans > 60 (> 60)
[2018-09-06] MEDS ORDERED: *HR* Heparin 5,000 UNIT/ML VIAL IVP PRN ×2 (05:14)
[2018-09-06] MEDS ORDERED: Diltiazem CD (24hr) 120 MG CAPSULE PO SCH (10:00)
--- NOTE | 2018-09-06 10:35 | Cardiology Consult Note ---
<Gabo Araya - Last Filed: 09/06/18 10:33> Date of Encounter: 09/06/18 Time of Encounter: 10:33 Assessment and Plan (1) Atrial flutter Current Visit: Yes Status: Acute Pt found to have 2:1 atrial flutter with RVR on event monitor per office records. Report is pending. EKG on admission showed atrial flutter with RVR, RBBB. TTE 08/28/18- EF 60-65%, indeterminate diastolic dysfunction, mildly dilated LA, Mild AR, mild MR, mild TR, mild PAH. Troponin negative, TSH normal. She converted on IV cardizem to NSR-SB. We will start cardizem CD 120 mg daily. CHADS VASc=4 for age2, HTN, and gender. We discussed indication, benefit, and adverse effects of anticoagulation with coumadin or NOAC. She is agreeable to halfway AC. Eliquis sent to pharmacy for barnes check. No further testing in-pt. Qualifiers: Atrial flutter type: unspecified Qualified Code(s): I48.92 - Unspecified atrial flutter (2) Hypertension Current Visit: No Status: Acute Uncontrolled HTN. Pt states she was on multiple anti-hypertensives in the past. Currently not on any. Starting cardizem. If needed add lisinopril. Low sodium diet. Qualifiers: Hypertension type: essential hypertension Qualified Code(s): I10 - Essential (primary) hypertension Discussion w patient/family: The assessment and plan as outlined above was discussed with the patient and/or family members who expressed understanding and agreement. All questions were answered. Thank you for involving us in the care of your patient. Please call with any questions. History of Present Illness Consult date: 09/06/18 Requesting physician: Getachew Carlson Consult reason: atrial flutter Chief complaint: palpitations, SOB with exertion History of present illness: Ms. Christian is a 83 year old female with past medical history significant for HTN, HLD, and asthma who presents from home by direction of her ethnographer Dr. Hernandez. She was wearing a 4 week event monitor when she was found to have atrial flutter with RVR. Cardionet notified Dr. Hernandez who recommended that she go to the ED for eval. EKG in the ED confirmed 2:1 atrial flutter with RVR and RBBB. She was placed on cardzem and heparin gtt IV and converted to NSR. Due to bradycar brian the IV cardizem was discontinued. She c/o increased palpitations over the past week. C/o ongoing palpitations, fatigue, nd SOB with exertion for the past three months. She denies prior cardiac history. She underwent pharmacologic stress test several years ago that was normal per pt. She does not endorse having chest pain but states that she has some "feelings' in her chest when she is SOB and always felt it was her asthma acting up. Past Med Surg Social Fam HX - Past Medical History Medical history: asthma Psychiatric history: no psych history - Past Surgical History Additional surgical history: Bladder mesh? - Social History Smoking Status: Never smoker Smokeless Tobacco Status: No Alcohol use: none Drug use: none Medications and Allergies RX: Cetirizine HCl [Zyrtec] 10 mg PO DAILY PRN 08/28/17 [History] RX: Latanoprost [Xalatan] 1 drop OP HS 08/28/17 [History] RX: Lidocaine Patch [Lidoderm 5% patch] 1 patch TP AD 08/28/17 [History] RX: Theophylline Anhydrous [Theodur] 300 mg PO BID 08/28/17 [History] RX: amLODIPine [Norvasc] 10 mg PO DAILY #60 tablet 08/31/17 [Rx] levoFLOXacin [Levaquin] 250 mg PO DAILY #3 tablet 08/31/17 [Rx] Apixaban [Eliquis] 5 mg PO BID #60 tablet 09/06/18 [Rx] Allergy/AdvReac Type Severity Reaction Status Date / Time brimonidine Allergy See Verified 09/05/18 16:53 Comments coal tar Allergy See Verified 09/05/18 16:51 Comments Cortisone Allergy See Verified 09/05/18 16:53 Comments Dorzolamide Allergy See Verified 09/05/18 16:53 Comments Penicillins Allergy Itching Verified 09/05/18 16:51 Sulfa (Sulfonamide Allergy See Verified 09/05/18 16:53 Antibiotics) Comments Tizanidine Allergy See Verified 09/05/18 16:51 Comments yellow dye Allergy See Verified 09/05/18 16:51 Comments prednisone AdvReac Nausea Verified 09/05/18 16:51 All Systems Review: The remainder of the systems were reviewed and are negative Physical Examination Vital Signs, Last 4 Hours Temp Pulse Resp BP Pulse Ox 09/06/18 07:07 97.4 F L 80 18 160/80 97 General: Conversant, No Apparent Distress HEENT: Atraumatic, Normocephaly, Mucus Membranes Moist Neck: No JVD, Normal carotid pulses Cardiac: Reg Rate and Rhythm, Normal S1 and S2, No Murmur Lungs: Other (easy, lung sound diminished over right lung base. ) Neuro: Alert and responsive, No focal deficits noted Abdomen: Soft, Non-Tender Skin: No rashes noted on visualized skin Musculoskeletal: No Chest Wall Tenderness Extremities: No Clubbing, No Cyanosis, No Edema, Normal Pulses Results 09/06/18 04:15 09/06/18 04:15 Lab Results 09/05/18 09/05/18 09/05/18 17:20 17:20 17:20 WBC 8.2 Hgb 15.1 Hct 45.1 H Plt Count 282 INR 1.1 APTT 31.6 Sodium 139 Potassium 3.8 Chloride 104 Carbon Dioxide 24 BUN 20 Creatinine 0.90 Glucose 113 H Calcium 9.8 Magnesium 2.1 Total Bilirubin AST ALT Alkaline Phosphatase Troponin I < 0.03 TSH 2.298 09/05/18 09/06/18 09/06/18 20:35 04:15 04:15 WBC 7.6 Hgb 12.8 D Hct 39.0 Plt Count 247 INR 1.1 APTT Sodium 139 Potassium 3.6 Chloride 107 Carbon Dioxide 24 BUN 17 Creatinine 0.73 Glucose 103 Calcium 9.2 Magnesium Total Bilirubin 0.5 AST 19 ALT 13 Alkaline Phosphatase 68 Troponin I TSH - Imaging and Cardiology Echo: report reviewed - EKG Interpretation EKG results cardiology: personally reviewed Consult Discharge Plan - Plan Referrals: Esthela Simeon MD [Primary Care Provider] - 09/14/18 10:00 am () Prescriptions: Apixaban [Eliquis] 5 mg PO BID #60 tablet <Ji Cornell - Last Filed: 09/06/18 13:19> Date of Encounter: 09/06/18 - Attending Attestation I examined this patient and my medical decision-making was reviewed with the Resident Physician. I agree with the documented findings, disposition and treatment plan as described except to the extent set forth below. 83 YOF with new onset PAF now in sinus rhythm agrees to start Eliquis for stroke risk reduction. She will also have an OP stress test to rule out ischemia and follow with cardiology Assessment and Plan Discussion w patient/family: The assessment and plan as outlined above was discussed with the patient and/or family members who expressed understanding and agreement. All questions were answered. Thank you for involving us in the care of your patient. Please call with any questions. History of Present Illness History of present illness: Ms. Christian is a 83 year old female All Systems Review: The remainder of the systems were reviewed and are negative Physical Examination Vital Signs, Last 4 Hours Temp Pulse Resp BP Pulse Ox 09/06/18 12:01 98.7 F 43 19 152/86 96 Results 09/06/18 04:15 09/06/18 04:15 Lab Results 09/05/18 09/05/18 09/05/18 17:20 17:20 17:20 WBC 8.2 Hgb 15.1 Hct 45.1 H Plt Count 282 INR 1.1 APTT 31.6 Sodium 139 Potassium 3.8 Chloride 104 Carbon Dioxide 24 BUN 20 Creatinine 0.90 Glucose 113 H Calcium 9.8 Magnesium 2.1 Total Bilirubin AST ALT Alkaline Phosphatase Troponin I < 0.03 TSH 2.298 09/05/18 09/06/18 09/06/18 20:35 04:15 04:15 WBC 7.6 Hgb 12.8 D Hct 39.0 Plt Count 247 INR 1.1 APTT Sodium 139 Potassium 3.6 Chloride 107 Carbon Dioxide 24 BUN 17 Creatinine 0.73 Glucose 103 Calcium 9.2 Magnesium Total Bilirubin 0.5 AST 19 ALT 13 Alkaline Phosphatase 68 Troponin I TSH
[2018-09-06] MEDS ORDERED: Loratadine 10 MG TABLET PO PRN (11:33)
--- NOTE | 2018-09-06 13:36 | Event Note ---
Date of Encounter: 09/06/18 Time of Encounter: 13:25 - Cardiology Event Note eliquis cost is 47$. I discussed with patient and daughter. They would like to avoid coumadin due to blood draws. I will barnes check Xarelto to compare. If it is not cheaper she is agreeable to eliquis.
--- NOTE | 2018-09-06 14:59 | Discharge Summary ---
- NOTES TO OUTPATIENT PROVIDER Notes to Outpatient Provider: Experiencing palpitations was sent by cardiology to ED after experiencing atrial flutter with a 2-1 block and right bundle branch block heart rate was in 140s she spontaneous converted to normal rate was placed on Cardizem for blood pressure control as well as Elliquis for anticoagulation. Theophylline reduced to 200 mg by mouth twice a day we will need to monitor theophylline levels as outpatient due to Cardizem. Continue with outpatient Holter monitoring-advised patient to monitor blood pressure at home blood pressure continues to be elevated may need to add lisinopril Orders not resulted at time of discharge: Pending orders 09/06/18 02:09 Culture,Urine [RM] Routine 09/06/18 17:06 Heparin anti-factor XA UFH [COAG] Timed Date of Encounter: 09/06/18 Time of Encounter: 14:57 - Discharge Diagnosis (1) Asthma Priority: Secondary Status: Acute Qualifiers: Asthma severity: unspecified severity Asthma persistence: unspecified Asthma complication type: unspecified Qualified Code(s): J45.909 - Unspecified asthma, uncomplicated (2) Pyuria Priority: Secondary Status: Acute (3) Hypertension Priority: Secondary Status: Acute Qualifiers: Hypertension type: essential hypertension Qualified Code(s): I10 - Essential (primary) hypertension (4) Atrial flutter Priority: Primary Status: Acute Qualifiers: Atrial flutter type: unspecified Qualified Code(s): I48.92 - Unspecified atrial flutter (5) Palpitations Priority: Secondary Status: Acute Hospital course: Ms. Christian is a 83 year old female past medical history significant for hypertension hyperlipidemia and asthma who presented to [facility] ED after being advised by her septic tank service technician Dr. Hernandez. Patient has been wearing a 4 week event monitor which was found to be in atrial flutter with RVR. [facility] Hernandez who advised patient against ED for evaluation. In the ED EKG did confirm a 2-1 atrial flutter with RVR in R BBB. She was placed on Cardizem drip as well as a heparin drip IV she did convert to normal sinus rhythm. Due to bradycardia her IV Cardizem was discontinued. She was seen by cardiology who did start patient on Cardizem CD and 20 mg daily. Anticoagulation was discussed and patient did agree to Eliquis-heparin ip was stopped and patient was given a dose of Alquist prior to discharge advised patient to continue with Eliquis 5 mg twice a day. Discussed with pharmacist Sameer concerning patient's theophylline she is on 300 mg twice a day due to being placed on Cardizem this will increase her theophylline level. I did decrease her theophylline to 200 mg twice a day and advised patient to follow-up with her PCP to monitor theophylline level as outpatient. I also advised the patient to monitor her blood pressure at home and keep a blood pressure log. Cardiology recommends adding lisinopril if blood pressure continues to be elevated. Currently patient denies any chest pain palpitations or shortness of breath she is hemodynamically stable at this time and she is ready for discharge. Discharge discussed with: patient - Time Spent with Patient Total time spent providing and/or coordinating discharge services: - Discharge Medications Prescriptions: Diltiazem CD (24hr) [Cardizem CD] 120 mg PO DAILY #30 cap.er.24h Lisinopril 2.5 mg PO DAILY #30 tablet Rivaroxaban [Xarelto] 20 mg PO DAILY #30 tablet Theophylline Anhydrous 200 mg PO BID #60 tab.er.12h Home Medications: Cetirizine HCl [Zyrtec] 10 mg PO DAILY PRN 08/28/17 [History] Latanoprost [Xalatan] 1 drop OP HS 08/28/17 [History] Lidocaine Patch [Lidoderm 5% patch] 1 patch TP AD 08/28/17 [History] levoFLOXacin [Levaquin] 250 mg PO DAILY #3 tablet 08/31/17 [Rx] Diltiazem CD (24hr) [Cardizem CD] 120 mg PO DAILY #30 cap.er.24h 09/06/18 [Rx] Lisinopril 2.5 mg PO DAILY #30 tablet 09/06/18 [Rx] Rivaroxaban [Xarelto] 20 mg PO DAILY #30 tablet 09/06/18 [Rx] Theophylline Anhydrous 200 mg PO BID #60 tab.er.12h 09/06/18 [Rx] Allergies/Adverse Reactions: Allergy/AdvReac Type Severity Reaction Status Date / Time brimonidine Allergy See Verified 09/05/18 16:53 Comments coal tar Allergy See Verified 09/05/18 16:51 Comments Cortisone Allergy See Verified 09/05/18 16:53 Comments Dorzolamide Allergy See Verified 09/05/18 16:53 Comments Penicillins Allergy Itching Verified 09/05/18 16:51 Sulfa (Sulfonamide Allergy See Verified 09/05/18 16:53 Antibiotics) Comments Tizanidine Allergy See Verified 09/05/18 16:51 Comments yellow dye Allergy See Verified 09/05/18 16:51 Comments prednisone AdvReac Nausea Verified 09/05/18 16:51 Date of admission: 09/05/18 21:49 Primary care physician: Esthela Simeon MD Consults: 09/05/18 21:54 Consult to Cardiology [CONS] Stat Comment: Consulting Provider: Cardiology Mari Reason for Consult: New-onset atrial flutter. Call Completed: No Discharging clinician: Minda Young Anticipated date of discharge: 09/06/18 - Constitutional Vitals: Temp Pulse Resp BP Pulse Ox 98.7 F 43 19 152/86 96 09/06/18 12:01 09/06/18 12:01 09/06/18 12:01 09/06/18 12:01 09/06/18 12:01 General appearance: Present: A&O X 3 Exam: . - Head Head exam: Present: atraumatic, normocephalic - Eye Eye exam: Present: PERRL, conjuntiva pink, sclera anicteric Pupils: Present: PERRL - Neck Neck exam general surgery: Present: supple, trachea midline. Absent: lymphadenopathy - Respiratory Respiratory exam: Present: CTAB. Absent: accessory muscle use, rales, rhonchi, wheezes - Cardiovascular Cardiovascular exam: Present: RRR, +S1, +S2. Absent: diastolic murmur, gallop, rubs, systolic murmur - GI/Abdominal GI/Abdominal exam: Present: normal bowel sounds, soft, no peritoneal signs. Absent: distended, tenderness - Extremities Exam Extremities exam: Present: warm, radial pulses palpable and symmetrical. Absent: calf tenderness, cyanotic, pedal edema - Neurological Exam Neurological exam: Present: CN II-XII intact, oriented X3, no focal deficits. Absent: pronater drift, facial droop, speech deficit - Skin Skin exam: Present: dry, intact - Patient Status Disposition: Home, Self-Care Condition: Good Functional capacity at discharge: independent ambulation - Discharge Instructions Instructions: Atrial Flutter (DC) Follow Up With: Esthela Simeon MD [Primary Care Provider] - 09/14/18 10:00 am () - Diet and Activity Activity: increase activity as tolerated Diet: advance to your usual diet
[2018-09-06 15:33] VITALS: BP 135/66
[2018-09-06] MEDS ORDERED: Apixaban 5 MG TABLET PO SCH (17:00)
--- NOTE | 2018-09-08 17:53 | Electrocardiograph Report ---
[address] [address] Test Date: 2018-09-05 Pat Name: Alexa Christian Department: EXAM7 Room: 3B54 Gender: F [employer]: : 1935 Requested By: Emil Petty Order Number: [id number] Reading MD: Dipti Hernandez Measurements Intervals [place] Rate: 141 P: MO: QRS: -29 QRSD: 121 T: -29 QT: 332 QTc: 491 Interpretive Statements Atrial fibrillation with rapid ventricular response with PVCs or aberrant conduction Right bundle branch block Electronically Signed On 09-08-2018 17:51:57 EST by Dipti Hernandez
--- NOTE | 2018-09-08 17:58 | Electrocardiograph Report ---
[address] [address] Test Date: 2018-09-05 Pat Name: Alexa Christian Department: EXAM7 Room: 3B54 Gender: F [employer]: : 1935 Requested By: Rosi See Order Number: [id number] Reading MD: Dipti Hernandez Measurements Intervals [place] Rate: 75 P: 43 VA: 178 QRS: -40 QRSD: 97 T: 50 QT: 428 QTc: 466 Interpretive Statements Sinus rhythm with frequent PACs Electronically Signed On 09-08-2018 17:56:39 EST by Dipti Hernandez
== END 2018-09-06 17:06 | disposition home or self-care (01) ==
LOC: 3BNU 16:43 → EMEROOARM 16:43 → 3BNU 22:39
PROVIDERS: ADMIT Internal Medicine; ATTEND Internal Medicine

== ENCOUNTER 2020-12-16 12:31 | Inpatient (IN) ==
[2020-12-16 13:24] LABS: Hematocrit 42.2 % (35.3-44.9); Hemoglobin 13.9 g/dL (11.5-15.4); Mean Corpuscular HGB Conc 32.9 g/dL (31.6-35.5); Mean Corpuscular Hemoglobin 29.8 pg (28.0-33.3); Mean Corpuscular Volume 90.6 fL (83.0-100.0); Mean Platelet Volume 9.6 fL (9.4-12.4); Platelet Count 292 K/mcL (140-400); Red Blood Count 4.66 M/mcL (3.82-4.97); White Blood Count 21.7 K/mcL (4.3-11.1)
[2020-12-16 13:36] LABS: Activated Partial Thrombo Time 23.4 Seconds (26.0-36.0)
[2020-12-16 13:44] LABS: INR 1.1; Prothrombin Time 12.9 Seconds (9.4-12.1)
[2020-12-16 13:45] LABS: Alanine Aminotransferase 34 Units/L (7-52); Albumin 3.4 g/dL (3.5-5.7); Albumin/Globulin Ratio 1.4 (1.1-2.2); Alkaline Phosphatase 55 Units/L (34-104); Aspartate Amino Transferase 17 Units/L (13-39); BUN/Creatinine Ratio 31 (6-26); Bilirubin,Direct 0.1 mg/dL (0.0-0.2); Bilirubin,Indirect 0.3 mg/dL (0.0-1.0); Bilirubin,Total 0.4 mg/dL (0.3-1.0); Blood Urea Nitrogen 23 mg/dL (8-23); Calcium 8.8 mg/dL (8.6-10.3); Carbon Dioxide 28 mEq/L (23-29); Chloride 97 mEq/L (98-107); Ethanol < 10 mg/dL (Less than 10); Globulin 2.5 g/dL (2.4-3.5); Glucose 123 mg/dL (70-105); Osmolality,Calculated 277 (280-300); Potassium 3.9 mEq/L (3.5-5.1); Sodium 131 mEq/L (136-145); Total Protein 5.9 g/dL (6.4-8.9); Troponin I < 0.03 ng/mL (< 0.04); eGFR For African Americans > 60 (> 60); eGFR For Non-African Americans > 60 (> 60)
[2020-12-16 13:46] LABS: Eosinophils # 0.4 K/mcL (0.0-0.6); Lymphocytes # 3.9 K/mcL (0.6-4.6); Monocytes # 1.3 K/mcL (0.0-1.3); Neutrophils # 16.1 K/mcL (1.6-8.9)
[2020-12-16 13:47] LABS: Platelet Estimate Normal (Normal); Reactive Lymphocytes Present (Not Present)
[2020-12-16 14:14] LABS: Bacteria,Urine Few per hpf (None-Few); Bilirubin,Urine Negative (Negative); Blood,Urine Negative (Negative); Clarity,Urine Turbid (Clear); Color,Urine Yellow (Yellow); Glucose,Urine (UA) Normal (Normal); Ketones,Urine Negative (Negative); Leukocyte Esterase,Urine Large (Negative); Mucus,Urine Few per lpf (None-Few); Nitrite,Urine Negative (Negative); Protein,Urine Negative (Neg-Trace); Renal Epithelial Cells,Urine Few per hpf (None-Few); Specific Gravity,Urine 1.015 (1.010-1.025); Squamous Epithelial Cell,Urine Few per hpf (None-Few); Transitional Epi Cells,Urine Few per hpf (None-Few); Urobilinogen,Urine Normal (Normal); WBC,Urine TNTC per hpf (0-3)
[2020-12-16] MEDS ORDERED: cefTRIAXone 1,000 MG in 0.9 % Sodium Chloride Mini Bag 100 ML IVPB ONE (14:20)
[2020-12-16 14:47] LABS: Amphetamine Screen,Urine Negative ng/mL (Cutoff=1000); Barbiturate Screen,Urine Negative ng/mL (Cutoff=200); Benzodiazepines Screen,Urine Negative ng/mL (Cutoff=200); Cannabinoid Screen,Urine Negative ng/mL (Cutoff = 50); Cocaine Screen,Urine Negative ng/mL (Cutoff= 300); Opiate Screen,Urine Negative ng/mL (Cutoff=300); Phencyclidine Screen,Urine Negative ng/mL (Cutoff=25)
[2020-12-16] MEDS ORDERED: Naloxone 0.4 MG/ML INJ IVP PRN (16:34)
[2020-12-16] MEDS ORDERED: 0.9 % Sodium Chloride 1,000 ML IVC SCH (17:15)
[2020-12-16] MEDS ORDERED: Albuterol 2.5 MG/3 ML NEBULIZER IH PRN (20:15)
[2020-12-16] MEDS: levETIRAcetam 250 MG TABLET PO SCH (20:43)
[2020-12-17 04:12] LABS: Hematocrit 42.6 % (35.3-44.9); Hemoglobin 14.6 g/dL (11.5-15.4); Mean Corpuscular HGB Conc 34.3 g/dL (31.6-35.5); Mean Corpuscular Hemoglobin 30.4 pg (28.0-33.3); Mean Corpuscular Volume 88.6 fL (83.0-100.0); Mean Platelet Volume 9.3 fL (9.4-12.4); Platelet Count 309 K/mcL (140-400); Red Blood Count 4.81 M/mcL (3.82-4.97); Red Cell Distribution Width 12.8 % (11.5-14.5); White Blood Count 26.8 K/mcL (4.3-11.1)
[2020-12-17 04:32] LABS: BUN/Creatinine Ratio 29 (6-26); Blood Urea Nitrogen 16 mg/dL (8-23); Calcium 8.6 mg/dL (8.6-10.3); Carbon Dioxide 24 mEq/L (23-29); Chloride 96 mEq/L (98-107); Glucose 100 mg/dL (70-105); Osmolality,Calculated 271 (280-300); Potassium 3.4 mEq/L (3.5-5.1); Sodium 130 mEq/L (136-145); eGFR For African Americans > 60 (> 60); eGFR For Non-African Americans > 60 (> 60)
[2020-12-17 05:03] LABS: Lymphocytes # 1.1 K/mcL (0.6-4.6); Monocytes # 1.6 K/mcL (0.0-1.3); Neutrophils # 23.1 K/mcL (1.6-8.9); Platelet Estimate Normal (Normal); Reactive Lymphocytes Present (Not Present)
[2020-12-17] MEDS ORDERED: 0.9 % Sodium Chloride 1,000 ML IVC SCH (08:00)
[2020-12-17] MEDS: levETIRAcetam 250 MG TABLET PO SCH ×2 (08:28→20:15)
[2020-12-17] MEDS: Loratadine 10 MG TABLET PO SCH (08:28)
[2020-12-17] MEDS: Famotidine 20 MG TABLET PO SCH ×2 (08:28→20:16)
[2020-12-17] MEDS: DilTIAZem CD (24hr) 180 MG CAP.ER.24H PO SCH (08:29)
[2020-12-17] MEDS: cefTRIAXone 2,000 MG in Water for inj. (sterile) 20 ML IVP SCH (08:29)
[2020-12-17] MEDS: hydroCHLOROthiazide 25 MG TABLET PO SCH (08:29)
[2020-12-17] MEDS: Acetaminophen 325 MG TABLET PO SCH ×3 (13:05→20:23)
[2020-12-17] MEDS: Acetaminophen IV 1,000 MG/100 ML BAG IVPB SCH ×2 (13:56→20:12)
[2020-12-17] MEDS: Latanoprost 2.5 ML BOTTLE BOTH EYES SCH (20:20)
[2020-12-18] MEDS ORDERED: Haloperidol Lactate 5 MG/ML VIAL IM ONE (01:06)
[2020-12-18 04:56] LABS: Basophils # 0.1 K/mcL (0.0-0.2); Basophils % 0.6 %; Eosinophils # 0.3 K/mcL (0.0-0.6); Eosinophils % 2.2 %; Hematocrit 39.4 % (35.3-44.9); Hemoglobin 13.3 g/dL (11.5-15.4); Immature Granulocytes % 2.7 % (0-4); Lymphocytes # 1.5 K/mcL (0.6-4.6); Lymphocytes % 10.4 %; Mean Corpuscular HGB Conc 33.8 g/dL (31.6-35.5); Mean Corpuscular Volume 88.9 fL (83.0-100.0); Mean Platelet Volume 9.5 fL (9.4-12.4); Monocytes # 1.5 K/mcL (0.0-1.3); Monocytes % 10.1 %; Neutrophils # 10.9 K/mcL (1.6-8.9); Platelet Count 253 K/mcL (140-400); Red Blood Count 4.43 M/mcL (3.82-4.97); Red Cell Distribution Width 13.2 % (11.5-14.5); White Blood Count 14.8 K/mcL (4.3-11.1)
[2020-12-18 05:14] LABS: BUN/Creatinine Ratio 22 (6-26); Blood Urea Nitrogen 11 mg/dL (8-23); Calcium 8.7 mg/dL (8.6-10.3); Carbon Dioxide 23 mEq/L (23-29); Chloride 103 mEq/L (98-107); Glucose 97 mg/dL (70-105); Osmolality,Calculated 277 (280-300); Potassium 3.2 mEq/L (3.5-5.1); Sodium 134 mEq/L (136-145); eGFR For African Americans > 60 (> 60); eGFR For Non-African Americans > 60 (> 60)
[2020-12-18] MEDS: Acetaminophen IV 1,000 MG/100 ML BAG IVPB SCH ×3 (05:32→19:56)
[2020-12-18] MEDS ORDERED: Haloperidol Lactate 5 MG/ML VIAL IVP ONE (08:37)
[2020-12-18] MEDS: cefTRIAXone 2,000 MG in Water for inj. (sterile) 20 ML IVP SCH (09:10)
[2020-12-18] MEDS: hydroCHLOROthiazide 25 MG TABLET PO SCH (09:59)
[2020-12-18] MEDS: Famotidine 20 MG TABLET PO SCH ×2 (09:59→19:56)
[2020-12-18] MEDS: levETIRAcetam 250 MG TABLET PO SCH ×2 (09:59→19:57)
[2020-12-18] MEDS: Loratadine 10 MG TABLET PO SCH (09:59)
[2020-12-18] MEDS: DilTIAZem CD (24hr) 180 MG CAP.ER.24H PO SCH (09:59)
[2020-12-18] MEDS: Latanoprost 2.5 ML BOTTLE BOTH EYES SCH (19:57)
[2020-12-19 02:26] LABS: Basophils % 0.3 %; Eosinophils # 0.4 K/mcL (0.0-0.6); Eosinophils % 3.2 %; Hematocrit 37.2 % (35.3-44.9); Hemoglobin 12.3 g/dL (11.5-15.4); Immature Granulocytes % 1.5 % (0-4); Lymphocytes # 1.9 K/mcL (0.6-4.6); Lymphocytes % 13.8 %; Mean Corpuscular HGB Conc 33.1 g/dL (31.6-35.5); Mean Corpuscular Hemoglobin 29.8 pg (28.0-33.3); Mean Corpuscular Volume 90.1 fL (83.0-100.0); Mean Platelet Volume 9.8 fL (9.4-12.4); Monocytes # 1.6 K/mcL (0.0-1.3); Monocytes % 11.4 %; Neutrophils # 9.5 K/mcL (1.6-8.9); Platelet Count 263 K/mcL (140-400); Red Blood Count 4.13 M/mcL (3.82-4.97); Red Cell Distribution Width 13.1 % (11.5-14.5); Segmented Neutrophils % 69.8 %; White Blood Count 13.6 K/mcL (4.3-11.1)
[2020-12-19 02:42] LABS: BUN/Creatinine Ratio 35 (6-26); Blood Urea Nitrogen 20 mg/dL (8-23); Calcium 8.8 mg/dL (8.6-10.3); Carbon Dioxide 25 mEq/L (23-29); Chloride 103 mEq/L (98-107); Glucose 107 mg/dL (70-105); Osmolality,Calculated 283 (280-300); Potassium 3.6 mEq/L (3.5-5.1); Sodium 135 mEq/L (136-145); eGFR For African Americans > 60 (> 60); eGFR For Non-African Americans > 60 (> 60)
[2020-12-19] MEDS: Acetaminophen IV 1,000 MG/100 ML BAG IVPB SCH ×3 (05:45→21:58)
[2020-12-19] MEDS: hydroCHLOROthiazide 25 MG TABLET PO SCH (09:12)
[2020-12-19] MEDS: DilTIAZem CD (24hr) 180 MG CAP.ER.24H PO SCH (09:13)
[2020-12-19] MEDS: Famotidine 20 MG TABLET PO SCH ×2 (09:13→21:58)
[2020-12-19] MEDS: Loratadine 10 MG TABLET PO SCH (09:14)
[2020-12-19] MEDS: cefTRIAXone 2,000 MG in Water for inj. (sterile) 20 ML IVP SCH (09:14)
[2020-12-19] MEDS: levETIRAcetam 250 MG TABLET PO SCH ×2 (09:14→21:57)
[2020-12-19] MEDS ORDERED: Haloperidol Lactate 5 MG/ML VIAL IM ONE (21:48)
[2020-12-19] MEDS: Latanoprost 2.5 ML BOTTLE BOTH EYES SCH (21:58)
[2020-12-20] MEDS: Acetaminophen IV 1,000 MG/100 ML BAG IVPB SCH (05:34)
[2020-12-20] MEDS: DilTIAZem CD (24hr) 180 MG CAP.ER.24H PO SCH (09:55)
[2020-12-20] MEDS: levETIRAcetam 250 MG TABLET PO SCH ×2 (09:56→21:04)
[2020-12-20] MEDS: hydroCHLOROthiazide 25 MG TABLET PO SCH (09:57)
[2020-12-20] MEDS: Loratadine 10 MG TABLET PO SCH (09:57)
[2020-12-20] MEDS: Famotidine 20 MG TABLET PO SCH ×2 (09:57→21:03)
[2020-12-20] MEDS: QUEtiapine Fumarate 25 MG TABLET PO SCH ×2 (18:03→21:06)
[2020-12-20] MEDS: Latanoprost 2.5 ML BOTTLE BOTH EYES SCH (21:07)
[2020-12-21 08:59] LABS: Basophils % 0.3 %; Eosinophils # 0.3 K/mcL (0.0-0.6); Eosinophils % 2.1 %; Hematocrit 37.8 % (35.3-44.9); Hemoglobin 12.2 g/dL (11.5-15.4); Immature Granulocytes % 0.7 % (0-4); Lymphocytes % 16.3 %; Mean Corpuscular HGB Conc 32.3 g/dL (31.6-35.5); Mean Corpuscular Hemoglobin 29.9 pg (28.0-33.3); Mean Corpuscular Volume 92.6 fL (83.0-100.0); Mean Platelet Volume 9.7 fL (9.4-12.4); Monocytes # 1.5 K/mcL (0.0-1.3); Monocytes % 12.8 %; Neutrophils # 8.2 K/mcL (1.6-8.9); Platelet Count 217 K/mcL (140-400); Red Blood Count 4.08 M/mcL (3.82-4.97); Red Cell Distribution Width 13.5 % (11.5-14.5); Segmented Neutrophils % 67.8 %
[2020-12-21 09:19] LABS: BUN/Creatinine Ratio 53 (6-26); Blood Urea Nitrogen 32 mg/dL (8-23); Calcium 8.7 mg/dL (8.6-10.3); Carbon Dioxide 26 mEq/L (23-29); Chloride 105 mEq/L (98-107); Glucose 98 mg/dL (70-105); Osmolality,Calculated 291 (280-300); Potassium 3.8 mEq/L (3.5-5.1); Sodium 137 mEq/L (136-145); eGFR For African Americans > 60 (> 60); eGFR For Non-African Americans > 60 (> 60)
[2020-12-21] MEDS: levETIRAcetam 250 MG TABLET PO SCH (10:03)
[2020-12-21] MEDS: Loratadine 10 MG TABLET PO SCH (10:04)
[2020-12-21] MEDS: DilTIAZem CD (24hr) 180 MG CAP.ER.24H PO SCH (10:04)
[2020-12-21] MEDS: hydroCHLOROthiazide 25 MG TABLET PO SCH (10:04)
[2020-12-21] MEDS: Famotidine 20 MG TABLET PO SCH (10:04)
[2020-12-21 10:14] VITALS: BP 126/69
== END 2020-12-21 18:50 | DRG 689 ==
LOC: 3ANU 12:31 → EMEROOARM 12:31 → 3ANU 17:02
PROVIDERS: ADMIT General Practice; ATTEND General Practice